=== PATIENT | male | born 1960 | race Two or more races ===

== ENCOUNTER 2016-10-10 14:05 | Inpatient (IN) | payer OTHER ==
[2016-10-10 14:18] VITALS: BMI 19.3
--- NOTE | 2016-10-10 17:06 | HP ---
CIWA Score - CIWA Score Nausea/Vomitin Muscle Tremors: 3 Anxiety: 3 Agitation: 3 Paroxysmal Sweats: 2 Orientation: 0-Oriented Tacttile Disturbances: 2-Mild Itch/Numbness/Burn Auditory Disturbances: 2-Mild Harshness/Frighten Visual Disturbances: 2-Mild Sensitivity Headache: 2-Mild CIWA-Ar Total Score: 22 Admission ROS BHS - HPI Chief Complaint: i need help to stop drinking alcohol Allergies/Adverse Reactions: Allergies Allergy/AdvReac Type Severity Reaction Status Date / Time No Known Allergies Allergy Verified 10/10/16 16:41 History of Present Illness: this 55 years old male with alcohol dependence,seeking detox,last treatment [facility] treatment 11/21/15 to 11/25/15 seen in [facility] last night ,had stitches,swelling of nose abrasion of right big toe stated has cat scan done at [facility] ,was told to be negative hypertension and hypercholesterolemia no significant period of sobriety Exam Limitations: No Limitations - Ebola screening Have you traveled outside of the country in the last 21 days: No Have you had contact with anyone from an Ebola affected area: No Have you been sick,other than usual withdrawal symptoms: No Do you have a fever: No - Review of Systems Constitutional: Loss of Appetite, Malaise, Night Sweats, Changes in sleep, Weakness EENT: reports: Other (swelling of nose laceration of chin) Respiratory: reports: No Symptoms reported Cardiac: reports: No Symptoms Reported GI: reports: Nausea, Poor Appetite, Vomiting, Abdominal cramping : reports: No Symptoms Reported Musculoskeletal: reports: Back Pain, Muscle Pain Integumentary: reports: Dryness Neuro: reports: Headache, Tremors Endocrine: reports: No Symptoms Reported Hematology: reports: No Symptoms Reported Psychiatric: reports: No Sypmtoms Reported, Judgement Intact, Mood/Affect Appropiate, Orientated x3 Patient History - Patient Medical History Hx Anemia: No Hx Asthma: No Hx Chronic Obstructive Pulmonary Disease (COPD): No Hx Cancer: No Hx Cardiac Disorders: No Hx Congestive Heart Failure: No Hx Hypertension: Yes (on med) Hx Hypercholesterolemia: Yes (no med) Hx Pacemaker: No HX Cerebrovascular Accident: No Hx Seizures: No Hx Dementia: No Hx Diabetes: No Hx Gastrointestinal Disorders: No Hx Liver Disease: No Hx Genitourinary Disorders: No Hx Sexually Transmitted Disorders: No Hx Renal Disease (ESRD): No Hx Thyroid Disease: No Hx Human Immunodeficiency Virus (HIV): No (never been tested) Hx Hepatitis C: No Hx Depression: No Hx Suicide Attempt: No Hx Bipolar Disorder: No Hx Schizophrenia: No Other Medical History: no suicidal,no homicidal - Patient Surgical History Past Surgical History: No Hx Neurologic Surgery: No Hx Cataract Extraction: No Hx Cardiac Surgery: No Hx Lung Surgery: No Hx Breast Surgery: No Hx Breast Biopsy: No Hx Abdominal Surgery: No Hx Appendectomy: No Hx Cholecystectomy: No Hx Genitourinary Surgery: No Hx Section: No Hx Orthopedic Surgery: No Anesthesia Reaction: No - PPD History Previous Implant?: Yes Documented Results: Negative w/o proof Date: 07/15/15 Results: 0MM PPD to be Administered?: Yes - Smoking Cessation Smoking history: Never smoked Have you smoked in the past 12 months: No Aproximately how many cigarettes per day: 0 Hx Chewing Tobacco Use: No - Substance & Tx. History Hx Alcohol Use: Yes Hx Substance Use: No Substance Use Type: Alcohol Hx Substance Use Treatment: Yes (last treatment 11/21/15 to ) - Substances Abused Alcohol Route: Oral Frequency: Daily Amount used: liquor- 1 pint, beet- 3 - 12oz Age of first use: 13 Date of Last Use: 10/10/16 Family Disease History - Family Disease History Family Disease History: Heart Disease: Mother (cardiac; had CVA,), CA: Sister (bone marrow; asthma), Respiratory: Sister Admission Physical Exam BHS - Vital Signs Vital Signs: Vital Signs - 24 hr 10/10/16 14:10 Temperature 98.5 F Pulse Rate 100 H Respiratory 18 Rate Blood Pressure 144/90 - Physical General Appearance: Yes: Moderate Distress, Alcohol on Breath, Intoxicated, Tremorous, Irritable, Sweating, Anxious HEENTM: Yes: Normal ENT Inspection, MATI, Pharynx Normal, Other (contuion of nose) Respiratory: Yes: Lungs Clear, Normal Breath Sounds, No Respiratory Distress Neck: Yes: Within Normal Limits Breast: Yes: Within Normal Limits Cardiology: Yes: Within Normal Limits, Regular Rhythm, Regular Rate, S1, S2 Abdominal: Yes: Within Normal Limits, Normal Bowel Sounds, Non Tender, Flat, Soft Genitourinary: Yes: Within Normal Limits Back: Yes: Muscle Spasm Musculoskeletal: Yes: full range of Motion, Back pain Extremities: Yes: Tremors 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 NML intact, Fully Oriented, Alert, Motor Strength 5/5 Integumentary: Yes: Dry Lymphatic: Yes: Within Normal Limits - Diagnostic (1) Alcohol dependence with uncomplicated withdrawal Current Visit: No Status: Acute (2) Alcohol induced sleep disorders Current Visit: No Status: Acute (3) Glaucoma Current Visit: No Status: Acute Qualifiers: Glaucoma type: unspecified type Laterality: bilateral (4) Arthritis Current Visit: No Status: Chronic (5) Laceration of chin Current Visit: Yes Status: Acute (6) Hypertension Current Visit: Yes Status: Acute (7) Hypercholesterolemia Current Visit: Yes Status: Acute (8) Contusion of nose Current Visit: Yes Status: Acute Cleared for Admission [facility] - Detox or Rehab [facility] Level of Care: Medically Managed Detox Regimen/Protocol: Librium [facility] Breath Alcohol Content Breath Alcohol Content: 0.039 Urine Drug Screen - Results Drug Screen Negative: Yes
[2016-10-10] MEDS ORDERED: chlordiazePOXIDE HCL 25 MG CAPSULE PO PRN (17:40)
[2016-10-10] MEDS ORDERED: chlordiazePOXIDE HCL 25 MG CAPSULE PO ONE (17:40)
[2016-10-10] MEDS ORDERED: hydrOXYzine PAMOATE 25 MG CAPSULE (FP) PO PRN (17:40)
[2016-10-10] MEDS ORDERED: P-EPHED 60MG/TRIPROLIDI 2.5MG TABLET PO PRN (17:40)
[2016-10-10] MEDS ORDERED: MAGNESIUM CITRATE 300 ML BOTTLE PO PRN (17:40)
[2016-10-10] MEDS ORDERED: diphenhydrAMINE HCL 50 MG CAPSULE PO PRN (17:40)
[2016-10-10] MEDS ORDERED: LOPERAMIDE HCL 2 MG CAPSULE PO PRN (17:40)
[2016-10-10] MEDS ORDERED: MAG HYDROX/AL HYDROX/SIMETH 30 ML UNIT-DOSE CUP PO PRN (17:40)
[2016-10-10] MEDS ORDERED: guaiFENesin/D-METHORPHAN HB 10 ML UNIT-DOSE CUPS PO PRN (17:40)
[2016-10-10] MEDS ORDERED: MENTHOL/PHENOL 1 EACH UD MM PRN (17:40)
[2016-10-10] MEDS ORDERED: MAGNESIUM HYDROX 2400MG/30ML ORAL SUSPENSION 30 ML CUP PO PRN (17:40)
[2016-10-10] MEDS: IBUPROFEN 400 MG TABLET (FP) PO PRN (18:18)
[2016-10-10] MEDS: chlordiazePOXIDE HCL 25 MG CAPSULE PO SCH (22:12)
[2016-10-10] MEDS: BACITRACIN 0.9 GM PACKET TP SCH (22:12)
[2016-10-10] MEDS: THIAMINE HCL 100 MG TABLET (FP) PO SCH (22:12)
[2016-10-10] MEDS: ACETAMINOPHEN 325 MG TABLET (FP) PO PRN (22:14)
[2016-10-10] MEDS: LATANOPROST 0.005% OPHTH SOLN 2.5ML BOTTLE OU SCH (22:15)
[2016-10-11] MEDS: IBUPROFEN 400 MG TABLET (FP) PO PRN ×2 (01:36→17:34)
[2016-10-11] MEDS: ACETAMINOPHEN 325 MG TABLET (FP) PO PRN ×2 (05:39→14:54)
[2016-10-11] MEDS: chlordiazePOXIDE HCL 25 MG CAPSULE PO SCH ×4 (05:39→22:27)
[2016-10-11 10:03] LABS: MCH 30.1 pg (25.7-33.7); MEAN CELL VOLUME 91.1 fl (80-96); MEAN PLT VOLUME 7.6 fl (7.5-11.1); PLATELET COUNT 333 K/MM3 (134-434); RDW 13.1 % (11.9-15.9); WHITE BLOOD COUNT 8.9 K/mm3 (4.0-10.0)
[2016-10-11] MEDS: PRENATAL VITAMINS W/ FOLIC ACID TABLET (FP) PO SCH (10:13)
[2016-10-11] MEDS: HYDROCHLOROTHIAZIDE 25 MG TABLET (FP) PO SCH (10:13)
[2016-10-11] MEDS: BACITRACIN 0.9 GM PACKET TP SCH ×2 (10:13→22:27)
[2016-10-11 10:22] LABS: ALBUMIN 3.4 g/dl (3.4-5.0); ALK PHOS 90 U/L (45-117); ANION GAP 9 (8-16); BILIRUBIN,TOTAL 1.1 mg/dL (0.2-1.0); CALCIUM 9.3 mg/dL (8.5-10.1); CO2 30 mmol/L (21-32); CREATININE 0.9 mg/dL (0.7-1.3); GLUCOSE,RANDOM 92 mg/dL (74-106); SGOT/AST 44 U/L (15-37); SGPT/ALT 73 U/L (12-78); TOT PROT 7.4 g/dl (6.4-8.2)
[2016-10-11] MEDS ORDERED: POTASSIUM CHLORIDE TABS 20 MEQ TABLET.ER (FP) PO ONE (17:53)
--- NOTE | 2016-10-11 17:55 | PN ---
S CIWA - CIWA Score Nausea/Vomitin Muscle Tremors: 4-Moderate,w/Arms Extend Anxiety: 4-Mod. Anxious/Guarded Agitation: 4-Moderately Restless Paroxysmal Sweats: 3 Orientation: 0-Oriented Tacttile Disturbances: 1-Very Mild Itch/Numbness Auditory Disturbances: 0-None Visual Disturbances: 0-None Headache: 1-Very Mild CIWA-Ar Total Score: 20 BHS Progress Note (SOAP) Subjective: Cramps in feet, interrupted sleep, sweating, anxious, tremor, chills Objective: 10/11/16 17:51 Last Vital Signs Temp Pulse Resp BP Pulse Ox 98.1 F 80 18 139/86 10/11/16 14:16 10/11/16 14:16 10/11/16 14:16 10/11/16 14:16 Laboratory Tests 10/11/16 10/11/16 10/11/16 07:50 07:50 07:50 WBC 8.9 D RBC 4.30 Hgb 12.9 Hct 39.2 MCV 91.1 MCH 30.1 MCHC 33.0 RDW 13.1 D Plt Count 333 D MPV 7.6 Sodium 134 L Potassium 3.1 L Chloride 95 L Carbon Dioxide 30 Anion Gap 9 BUN 9 Creatinine 0.9 Creat Clearance w eGFR > 60 Random Glucose 92 Calcium 9.3 Total Bilirubin 1.1 H AST 44 H ALT 73 D Alkaline Phosphatase 90 Total Protein 7.4 Albumin 3.4 RPR Titer Nonreactive Labs noted: K 3.1 Assessment: 10/11/16 17:52 Withdrawal symptoms Noted with hypokalemia Plan: Continue detox Hypokalemia: K Dur 40 meq PO x 1 then 20 meq PO bid starting tomorrow, send bmp on Wednesday
--- NOTE | 2016-10-11 22:07 | EKG ---
Test Reason : Blood Pressure : / mmHG Vent. Rate : 085 BPM Atrial Rate : 085 BPM P-R Int : 188 ms QRS Dur : 096 ms QT Int : 358 ms P-R-T Axes : 070 034 059 degrees QTc Int : 426 ms NORMAL SINUS RHYTHM NORMAL ECG NO PREVIOUS ECGS AVAILABLE Confirmed by WIN BENNETT MD ([id number]) on 10/11/2016 10:06:58 PM Referred By: Confirmed By:WIN BENNETT MD
[2016-10-11] MEDS: THIAMINE HCL 100 MG TABLET (FP) PO SCH (22:27)
[2016-10-11] MEDS: LATANOPROST 0.005% OPHTH SOLN 2.5ML BOTTLE OU SCH (22:28)
[2016-10-11 23:56] LABS: URINE APPEARANCE SLCLOUDY; URINE BILIRUBIN NEGATIVE (NEGATIVE); URINE BLOOD NEGATIVE (NEGATIVE); URINE COLOR AMBER; URINE GLUCOSE (UA) NEGATIVE (NEGATIVE); URINE KETONE TRACE (NEGATIVE); URINE LEUK ESTERASE NEGATIVE (NEGATIVE); URINE NITRITE NEGATIVE (NEGATIVE)
[2016-10-11 23:58] LABS: URINE PROTEIN 2+ (NEGATIVE)
[2016-10-12] LABS: URINE HYALINE CAST 3 /lpf; URINE MUCUS MANY; URINE RBC 19 /hpf (0-3); URINE WBC 3 /hpf (3-5)
[2016-10-12] MEDS: IBUPROFEN 400 MG TABLET (FP) PO PRN (03:14)
[2016-10-12] MEDS: chlordiazePOXIDE HCL 25 MG CAPSULE PO SCH ×3 (05:33→18:12)
--- NOTE | 2016-10-12 09:45 | PN ---
S CIWA - CIWA Score Nausea/Vomitin Muscle Tremors: 4-Moderate,w/Arms Extend Anxiety: 4-Mod. Anxious/Guarded Agitation: 4-Moderately Restless Paroxysmal Sweats: 3 Orientation: 0-Oriented Tacttile Disturbances: 1-Very Mild Itch/Numbness Auditory Disturbances: 0-None Visual Disturbances: 1-Very Mild Sensitivity Headache: 0-None Present CIWA-Ar Total Score: 20 S Progress Note (SOAP) Subjective: nause, swets, interrupted sleep, anxiety, tremors Objective: 10/12/16 09:44 Vital Signs - 8 hr 10/12/16 10/12/16 10/12/16 04:28 06:14 09:15 Temperature 98.9 F 96.7 F L Pulse Rate 76 75 Respiratory 18 18 18 Rate Blood Pressure 138/93 135/78 Laboratory Tests 10/11/16 10/11/16 10/11/16 07:50 07:50 07:50 WBC 8.9 D RBC 4.30 Hgb 12.9 Hct 39.2 MCV 91.1 MCH 30.1 MCHC 33.0 RDW 13.1 D Plt Count 333 D MPV 7.6 Sodium 134 L Potassium 3.1 L Chloride 95 L Carbon Dioxide 30 Anion Gap 9 BUN 9 Creatinine 0.9 Creat Clearance w eGFR > 60 Random Glucose 92 Calcium 9.3 Total Bilirubin 1.1 H AST 44 H ALT 73 D Alkaline Phosphatase 90 Total Protein 7.4 Albumin 3.4 Urine Color Urine Appearance Urine pH Urine Protein Urine Glucose (UA) Urine Ketones Urine Blood Urine Nitrite Urine Bilirubin Urine Urobilinogen Ur Leukocyte Esterase Urine RBC Urine WBC Ur Epithelial Cells Hyaline Casts Urine Mucus RPR Titer Nonreactive 10/11/16 22:40 WBC RBC Hgb Hct MCV MCH MCHC RDW Plt Count MPV Sodium Potassium Chloride Carbon Dioxide Anion Gap BUN Creatinine Creat Clearance w eGFR Random Glucose Calcium Total Bilirubin AST ALT Alkaline Phosphatase Total Protein Albumin Urine Color Nataliia Urine Appearance Slcloudy Urine pH 5.0 Urine Protein 2+ H Urine Glucose (UA) Negative Urine Ketones Trace H Urine Blood Negative Urine Nitrite Negative Urine Bilirubin Negative Urine Urobilinogen 2.0 Ur Leukocyte Esterase Negative Urine RBC 19 Urine WBC 3 Ur Epithelial Cells Rare Hyaline Casts 3 Urine Mucus Many RPR Titer abnormal u/a, labs noted Assessment: 10/12/16 09:44 withdrawal sx, low k, abnormal u/a Plan: cont detox, fluids, ensuire plus, for malnutirion hypoalbuminemia 2/2 substance use/liver disease?, supplement k, encourage ambulation
[2016-10-12] MEDS: HYDROCHLOROTHIAZIDE 25 MG TABLET (FP) PO SCH (10:21)
[2016-10-12] MEDS: PRENATAL VITAMINS W/ FOLIC ACID TABLET (FP) PO SCH (10:21)
[2016-10-12] MEDS: BACITRACIN 0.9 GM PACKET TP SCH ×2 (10:22→22:40)
[2016-10-12] MEDS: POTASSIUM CHLORIDE TABS 20 MEQ TABLET.ER (FP) PO SCH ×2 (10:22→22:41)
[2016-10-12] MEDS: NAPROXEN 500 MG TABLET (FP) PO SCH ×2 (10:23→22:40)
--- NOTE | 2016-10-12 10:29 | CONSULT ---
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 Substance Abuse History: Patient confirms this report in this interview. Smoking Cessation. Smoking history: Never smoked. Have you smoked in the past 12 months: No. Aproximately how many cigarettes per day: 0. Hx Chewing Tobacco Use: No. - Substance & Tx. History. Hx Alcohol Use: Yes. Hx Substance Use: No. Substance Use Type: Alcohol. Hx Substance Use Treatment: Yes (last treatment 11/21/15 to ). - Substances Abused. Alcohol. Route: Oral. Frequency: Daily. Amount used: liquor- 1 pint, beet- 3 - 12oz. Age of first use: 13. Date of Last Use: 10/10/16 Medical History: Hypertension,dyslipidemia,glaucoma and arthritis (self-report). Psychiatric History: Patient denies. Physical/Sexual Abuse/Trauma History: Patient denies. Additional Comment: Drug Screen is negative. Mental Status Exam - Mental Status Exam Alert and Oriented to: Time, Place, Person Cognitive Function: Good Patient Appearance: Well Groomed (abrasions noted in sub-mandibular area and nose) Mood: Hopeful, Euthymic Affect: Appropriate, Normal Range Patient Behavior: Appropriate, Cooperative Speech Pattern: Clear Voice Loudness: Normal Thought Process: Intact, Goal Oriented Thought Disorder: Not Present Hallucinations: Denies Suicidal Ideation: Denies Homicidal Ideation: Denies Insight/Judgement: Poor Sleep: Poorly, Difficulty falling asleep Appetite: Good Muscle strength/Tone: Normal Gait/Station: Normal Psychiatric Findings - Problem List ([place] 1, 2,3) (1) Alcohol dependence with uncomplicated withdrawal Current Visit: Yes Status: Acute (2) Contusion of nose Current Visit: Yes Status: Acute (3) Hypercholesterolemia Current Visit: Yes Status: Chronic (4) Hypertension Current Visit: Yes Status: Chronic (5) Laceration of chin Current Visit: Yes Status: Acute (6) Glaucoma Current Visit: Yes Status: Chronic Qualifiers: Glaucoma type: unspecified type Laterality: bilateral (7) Arthritis Current Visit: Yes Status: Chronic (8) Insomnia Current Visit: Yes Status: Acute - Initial Treatment Plan Initial Treatment Plan: Psychoeducation.Detoxification.Zolpidem 10 mg po hs.Already ordered.Patient made aware of potential for paraomnias.Consent ( verbal) expressed for adherence to this careplan.Observation.
[2016-10-12] MEDS: SELENIUM SULFIDE 2.5% LOTION 4 OZ. TP SCH (11:35)
[2016-10-12] MEDS: GABAPENTIN 100 MG CAPSULE (FP) PO SCH ×2 (13:26→22:40)
[2016-10-12] MEDS: CYCLOBENZAPRINE HCL 10 MG TABLET (FP) PO SCH ×2 (13:26→22:41)
[2016-10-12] MEDS: ACETAMINOPHEN 325 MG TABLET (FP) PO PRN (18:14)
[2016-10-12] MEDS: LATANOPROST 0.005% OPHTH SOLN 2.5ML BOTTLE OU SCH (22:40)
[2016-10-12] MEDS: chlordiazePOXIDE 5 MG CAPSULE PO SCH (22:40)
[2016-10-12] MEDS: ZOLPIDEM TARTRATE 10 MG TABLET (PARK CARE ONLY) PO PRN (22:40)
[2016-10-12] MEDS: THIAMINE HCL 100 MG TABLET (FP) PO SCH (22:40)
[2016-10-13] MEDS: chlordiazePOXIDE 5 MG CAPSULE PO SCH ×3 (05:38→17:55)
[2016-10-13] MEDS: GABAPENTIN 100 MG CAPSULE (FP) PO SCH ×3 (05:38→22:35)
[2016-10-13] MEDS: CYCLOBENZAPRINE HCL 10 MG TABLET (FP) PO SCH ×3 (05:38→22:35)
[2016-10-13] MEDS: ACETAMINOPHEN 325 MG TABLET (FP) PO PRN ×3 (05:39→17:57)
[2016-10-13] MEDS: HYDROCHLOROTHIAZIDE 25 MG TABLET (FP) PO SCH (10:34)
[2016-10-13] MEDS: POTASSIUM CHLORIDE TABS 20 MEQ TABLET.ER (FP) PO SCH ×2 (10:34→22:35)
[2016-10-13] MEDS: BACITRACIN 0.9 GM PACKET TP SCH ×2 (10:34→22:34)
[2016-10-13] MEDS: PRENATAL VITAMINS W/ FOLIC ACID TABLET (FP) PO SCH (10:34)
[2016-10-13] MEDS: SELENIUM SULFIDE 2.5% LOTION 4 OZ. TP SCH (10:35)
[2016-10-13] MEDS: NAPROXEN 500 MG TABLET (FP) PO SCH ×2 (10:35→22:35)
--- NOTE | 2016-10-13 11:09 | PN ---
BHS Progress Note (SOAP) Subjective: ANXIETY,SWEATS,TREMORS,FATIGUE. Objective: 10/13/16 11:07 Vital Signs Temperature 97.9 F 10/13/16 09:31 Pulse Rate 65 10/13/16 09:31 Respiratory Rate 18 10/13/16 09:31 Blood Pressure 127/85 10/13/16 09:31 O2 Sat by Pulse Oximetry (%) Laboratory Last Values WBC 8.9 K/mm3 (4.0-10.0) D 10/11/16 07:50 RBC 4.30 M/mm3 (4.00-5.60) 10/11/16 07:50 Hgb 12.9 GM/dL (11.7-16.9) 10/11/16 07:50 Hct 39.2 % (35.4-49) 10/11/16 07:50 MCV 91.1 fl (80-96) 10/11/16 07:50 MCH 30.1 pg (25.7-33.7) 10/11/16 07:50 MCHC 33.0 g/dl (32.0-35.9) 10/11/16 07:50 RDW 13.1 % (11.9-15.9) D 10/11/16 07:50 Plt Count 333 K/MM3 (134-434) D 10/11/16 07:50 MPV 7.6 fl (7.5-11.1) 10/11/16 07:50 Sodium 134 mmol/L (136-145) L 10/11/16 07:50 Potassium 3.1 mmol/L (3.5-5.1) L 10/11/16 07:50 Chloride 95 mmol/L (98-107) L 10/11/16 07:50 Carbon Dioxide 30 mmol/L (21-32) 10/11/16 07:50 Anion Gap 9 (8-16) 10/11/16 07:50 BUN 9 mg/dL (7-18) 10/11/16 07:50 Creatinine 0.9 mg/dL (0.7-1.3) 10/11/16 07:50 Creat Clearance w eGFR > 60 (>60) 10/11/16 07:50 Random Glucose 92 mg/dL (74-106) 10/11/16 07:50 Calcium 9.3 mg/dL (8.5-10.1) 10/11/16 07:50 Total Bilirubin 1.1 mg/dL (0.2-1.0) H 10/11/16 07:50 AST 44 U/L (15-37) H 10/11/16 07:50 ALT 73 U/L (12-78) D 10/11/16 07:50 Alkaline Phosphatase 90 U/L (45-117) 10/11/16 07:50 Total Protein 7.4 g/dl (6.4-8.2) 10/11/16 07:50 Albumin 3.4 g/dl (3.4-5.0) 10/11/16 07:50 Urine Color Nataliia 10/11/16 22:40 Urine Appearance Slcloudy 10/11/16 22:40 Urine pH 5.0 (5.0-8.0) 10/11/16 22:40 Ur Specific [place] 1.025 (1.005-1.025) 10/11/16 22:40 Urine Protein 2+ (NEGATIVE) H 10/11/16 22:40 Urine Glucose (UA) Negative (NEGATIVE) 10/11/16 22:40 Urine Ketones Trace (NEGATIVE) H 10/11/16 22:40 Urine Blood Negative (NEGATIVE) 10/11/16 22:40 Urine Nitrite Negative (NEGATIVE) 10/11/16 22:40 Urine Bilirubin Negative (NEGATIVE) 10/11/16 22:40 Urine Urobilinogen 2.0 mg/dL (0.2-1.0) 10/11/16 22:40 Ur Leukocyte Esterase Negative (NEGATIVE) 10/11/16 22:40 Urine RBC 19 /hpf (0-3) 10/11/16 22:40 Urine WBC 3 /hpf (3-5) 10/11/16 22:40 Ur Epithelial Cells Rare /hpf (FEW) 10/11/16 22:40 Hyaline Casts 3 /lpf 10/11/16 22:40 Urine Mucus Many 10/11/16 22:40 RPR Titer Nonreactive (NONREACTIVE) 10/11/16 07:50 LABS/UA NOTED K+ =3.1 Assessment: 10/13/16 11:08 WITHDRAWAL SX HYPOKALEMIA MICROSCOPIC HEMATURIA Plan: CONTINUE DETOX REPEAT UA KDUR 20 MEQ PO BID DIRECTED INCREASE PO FLUIDS
[2016-10-13 22:09] LABS: URINE APPEARANCE CLEAR; URINE BILIRUBIN NEGATIVE (NEGATIVE); URINE BLOOD NEGATIVE (NEGATIVE); URINE COLOR LTYELLOW; URINE GLUCOSE (UA) NEGATIVE (NEGATIVE); URINE KETONE NEGATIVE (NEGATIVE); URINE LEUK ESTERASE NEGATIVE (NEGATIVE); URINE NITRITE NEGATIVE (NEGATIVE); URINE PROTEIN NEGATIVE (NEGATIVE); URINE UROBILINOGEN NEGATIVE mg/dL (0.2-1.0)
[2016-10-13] MEDS: LATANOPROST 0.005% OPHTH SOLN 2.5ML BOTTLE OU SCH (22:33)
[2016-10-13] MEDS: THIAMINE HCL 100 MG TABLET (FP) PO SCH (22:33)
[2016-10-13] MEDS: chlordiazePOXIDE HCL 10 MG CAPSULE PO SCH (22:35)
[2016-10-13] MEDS: ZOLPIDEM TARTRATE 10 MG TABLET (PARK CARE ONLY) PO PRN (22:35)
[2016-10-14] MEDS: ACETAMINOPHEN 325 MG TABLET (FP) PO PRN (05:24)
[2016-10-14] MEDS: GABAPENTIN 100 MG CAPSULE (FP) PO SCH (06:09)
[2016-10-14] MEDS: chlordiazePOXIDE HCL 10 MG CAPSULE PO SCH (06:09)
[2016-10-14] MEDS: CYCLOBENZAPRINE HCL 10 MG TABLET (FP) PO SCH (06:09)
--- NOTE | 2016-10-14 08:39 | DS ---
[facility] Detox Discharge Summary Admission Date: 10/10/16 Discharge Date: 10/14/16 - History Present History: Alcohol Dependence Additional Comments: DETOX COMPLETED. ALERT O X 3. NAD. PT INSRUCTED TO FOLLOW UP WITH [facility]ULLER IN [facility] FOR MEDICAL MANAGEMENT OF COMORBID CONDITIONS. PT STATES HE HAS OWN MEDS AT HOME. Pertinent Past History: HYPERTENSION HYPERCHOLESTEROLEMIA GLAUCOMA S/P CONTUSION OF NOSE S/P LACERATION CHIN - Physical Exam Results Vital Signs: Vital Signs Temperature 98.7 F 10/14/16 06:57 Pulse Rate 84 10/14/16 06:57 Respiratory Rate 18 10/14/16 06:57 Blood Pressure 129/81 10/14/16 06:57 O2 Sat by Pulse Oximetry (%) Pertinent Admission Physical Exam Findings: WITHDRAWAL SX Laboratory Last Values WBC 8.9 K/mm3 (4.0-10.0) D 10/11/16 07:50 RBC 4.30 M/mm3 (4.00-5.60) 10/11/16 07:50 Hgb 12.9 GM/dL (11.7-16.9) 10/11/16 07:50 Hct 39.2 % (35.4-49) 10/11/16 07:50 MCV 91.1 fl (80-96) 10/11/16 07:50 MCH 30.1 pg (25.7-33.7) 10/11/16 07:50 MCHC 33.0 g/dl (32.0-35.9) 10/11/16 07:50 RDW 13.1 % (11.9-15.9) D 10/11/16 07:50 Plt Count 333 K/MM3 (134-434) D 10/11/16 07:50 MPV 7.6 fl (7.5-11.1) 10/11/16 07:50 Sodium 140 mmol/L (136-145) 10/14/16 07:00 Potassium 4.6 mmol/L (3.5-5.1) D 10/14/16 07:00 Chloride 102 mmol/L (98-107) 10/14/16 07:00 Carbon Dioxide 31 mmol/L (21-32) 10/14/16 07:00 Anion Gap 7 (8-16) L 10/14/16 07:00 BUN 12 mg/dL (7-18) D 10/14/16 07:00 Creatinine 0.7 mg/dL (0.7-1.3) D 10/14/16 07:00 Creat Clearance w eGFR > 60 (>60) 10/11/16 07:50 Random Glucose 93 mg/dL (74-106) 10/14/16 07:00 Calcium 10.3 mg/dL (8.5-10.1) H 10/14/16 07:00 Total Bilirubin 1.1 mg/dL (0.2-1.0) H 10/11/16 07:50 AST 44 U/L (15-37) H 10/11/16 07:50 ALT 73 U/L (12-78) D 10/11/16 07:50 Alkaline Phosphatase 90 U/L (45-117) 10/11/16 07:50 Total Protein 7.4 g/dl (6.4-8.2) 10/11/16 07:50 Albumin 3.4 g/dl (3.4-5.0) 10/11/16 07:50 Urine Color Ltyellow 10/13/16 21:30 Urine Appearance Clear 10/13/16 21:30 Urine pH 7.0 (5.0-8.0) D 10/13/16 21:30 Ur Specific [place] 1.020 (1.005-1.025) 10/13/16 21:30 Urine Protein Negative (NEGATIVE) 10/13/16 21:30 Urine Glucose (UA) Negative (NEGATIVE) 10/13/16 21:30 Urine Ketones Negative (NEGATIVE) 10/13/16 21:30 Urine Blood Negative (NEGATIVE) 10/13/16 21:30 Urine Nitrite Negative (NEGATIVE) 10/13/16 21:30 Urine Bilirubin Negative (NEGATIVE) 10/13/16 21:30 Urine Urobilinogen Negative mg/dL (0.2-1.0) 10/13/16 21:30 Ur Leukocyte Esterase Negative (NEGATIVE) 10/13/16 21:30 Urine RBC 19 /hpf (0-3) 10/11/16 22:40 Urine WBC 3 /hpf (3-5) 10/11/16 22:40 Ur Epithelial Cells Rare /hpf (FEW) 10/11/16 22:40 Hyaline Casts 3 /lpf 10/11/16 22:40 Urine Mucus Many 10/11/16 22:40 RPR Titer Nonreactive (NONREACTIVE) 10/11/16 07:50 - Treatment Hospital Course: Detox Protocol Followed, Detoxed Safely, Responded well, Discharged Condition Good - Medication Discharge Medications: Ambulatory Orders Latanoprost 0.005% Eye Drops [Xalatan 0.005% Eye Drops -] 1 drop OU HS #1 drops 01/02/16 Hydrochlorothiazide [Hctz -] 25 mg PO DAILY 10/10/16 - Diagnosis (1) Alcohol dependence with uncomplicated withdrawal Current Visit: Yes Status: Acute (2) Arthritis Current Visit: Yes Status: Chronic (3) Glaucoma Current Visit: Yes Status: Chronic Qualifiers: Glaucoma type: unspecified type Laterality: bilateral (4) Hypercholesterolemia Current Visit: Yes Status: Chronic (5) Hypertension Current Visit: Yes Status: Chronic Qualifiers: Hypertension type: essential hypertension Qualified Code(s): I10 - Essential (primary) hypertension (6) Contusion of nose Current Visit: Yes Status: Acute (7) Laceration of chin Current Visit: Yes Status: Acute (8) Hypokalemia Current Visit: Yes Status: Acute - AMA Did Patient Leave Against Medical Advice: No
[2016-10-14 10:16] VITALS: BP 137/84; PULSE 91; TEMP 98.2
[2016-10-14 10:30] LABS: ANION GAP 7 (8-16); CALCIUM 10.3 mg/dL (8.5-10.1); CO2 31 mmol/L (21-32); CREATININE 0.7 mg/dL (0.7-1.3); GLUCOSE,RANDOM 93 mg/dL (74-106)
[2016-10-14] MEDS: HYDROCHLOROTHIAZIDE 25 MG TABLET (FP) PO SCH (10:45)
[2016-10-14] MEDS: BACITRACIN 0.9 GM PACKET TP SCH (10:45)
[2016-10-14] MEDS: NAPROXEN 500 MG TABLET (FP) PO SCH (10:45)
[2016-10-14] MEDS: PRENATAL VITAMINS W/ FOLIC ACID TABLET (FP) PO SCH (10:45)
[2016-10-14] MEDS: POTASSIUM CHLORIDE TABS 20 MEQ TABLET.ER (FP) PO SCH (10:45)
[2016-10-14] MEDS: SELENIUM SULFIDE 2.5% LOTION 4 OZ. TP SCH (10:47)
== END 2016-10-14 10:53 | disposition home or self-care (01) | DRG 775 ==
LOC: YASAS 14:05 → Y3N 17:05
PROVIDERS: ADMIT Internal Medicine Addiction Medicine; ATTEND Internal Medicine Addiction Medicine
PROC: HZ2ZZZZ Detoxification Services for Substance Abuse Treatment (ICD-10-PCS; principal; 2016-10-10)
DX: F10.230 Alcohol dependence with withdrawal, uncomplicated (principal); I10 Essential (primary) hypertension; E78.00 Pure hypercholesterolemia, unspecified; E87.6 Hypokalemia; R31.29 Other microscopic hematuria; G47.00 Insomnia, unspecified; R82.90 Unspecified abnormal findings in urine; H40.9 Unspecified glaucoma; M19.90 Unspecified osteoarthritis, unspecified site
CPT/HCPCS: 36415; 80048; 80053; 81003; 81015; 85027; 86593; 93005; 93010

== ENCOUNTER 2017-01-12 09:32 | Inpatient (IN) | payer OTHER ==
[2017-01-12 10:45] VITALS: BMI 21.1
--- NOTE | 2017-01-12 12:20 | HP ---
CIWA Score - CIWA Score Nausea/Vomitin-No Nausea/No Vomiting Muscle Tremors: 4-Moderate,w/Arms Extend Anxiety: 5 Agitation: 4-Moderately Restless Paroxysmal Sweats: 1-Minimal Palms Moist Orientation: 0-Oriented Tacttile Disturbances: 3-Moderate Itch/Numb/Burn Auditory Disturbances: 0-None Visual Disturbances: 0-None Headache: 0-None Present CIWA-Ar Total Score: 17 Admission ROS BHS - HPI Chief Complaint: WITHDRAWAL SX FROM ALCOHOL Allergies/Adverse Reactions: Allergies Allergy/AdvReac Type Severity Reaction Status Date / Time amlodipine besylate Allergy Severe Swelling Verified 01/12/17 11:21 [From [facility]] History of Present Illness: 56 Y/O MALE WITH A HX ALCOHOL DEPENDENCE SEEKING DETOX TX. PT IS AT [facility] IOP. Exam Limitations: No Limitations, Intoxication - Ebola screening Have you traveled outside of the country in the last 21 days: No Have you had contact with anyone from an Ebola affected area: No Have you been sick,other than usual withdrawal symptoms: No Do you have a fever: No - Review of Systems Constitutional: Changes in sleep (ON SLEEPING MED) EENT: reports: Blurred Vision (HX GLAUCOMA, BOTH EYES), Tearing, Nose Congestion (HX DEVIATED SEPTUM), Dental Problems (MISSING TEETH/POOR REPAIR STATE) Respiratory: reports: No Symptoms reported Cardiac: reports: No Symptoms Reported GI: reports: Constipated, Diarrhea, Nausea, Vomiting : reports: No Symptoms Reported Musculoskeletal: reports: Neck Pain (HX ARTHRITIS) Integumentary: reports: Other (SCAR FROM RASH IN THE PAST) Neuro: reports: Tremors Endocrine: reports: No Symptoms Reported Hematology: reports: No Symptoms Reported Psychiatric: reports: Orientated x3, Anxious Other Systems: Reviewed and Negative Patient History - Patient Medical History Hx Anemia: No Hx Asthma: No Hx Chronic Obstructive Pulmonary Disease (COPD): No Hx Cancer: No Hx Cardiac Disorders: No Hx Congestive Heart Failure: No Hx Hypertension: Yes (on meds.) Hx Hypercholesterolemia: Yes (no med) Hx Pacemaker: No HX Cerebrovascular Accident: No Hx Seizures: No Hx Dementia: No Hx Diabetes: No Hx Gastrointestinal Disorders: No Hx Liver Disease: Yes (FATTY LIVER HX) Hx Genitourinary Disorders: No Hx Sexually Transmitted Disorders: No Hx Renal Disease (ESRD): No Hx Thyroid Disease: No Hx Human Immunodeficiency Virus (HIV): No (never been tested) Hx Hepatitis C: No Hx Depression: Yes (INSOMNIA-SEROQUEL ) Hx Suicide Attempt: No (DENIES) Hx Bipolar Disorder: No Hx Schizophrenia: No - Patient Surgical History Past Surgical History: No Hx Neurologic Surgery: No Hx Cataract Extraction: No Hx Cardiac Surgery: No Hx Lung Surgery: No Hx Breast Surgery: No Hx Breast Biopsy: No Hx Abdominal Surgery: No Hx Appendectomy: No Hx Cholecystectomy: No Hx Genitourinary Surgery: No Hx Orthopedic Surgery: No Anesthesia Reaction: No - PPD History Previous Implant?: Yes Documented Results: Negative w/proof Implanted On Prior [facility] Admission?: Yes Date: 07/15/15 Results: 0 mm PPD to be Administered?: Yes - Reproductive History Patient is a Female of Child Bearing Age (11 -55 yrs old): No (MALE) - Smoking Cessation Smoking history: Former smoker (SAYS LAST TIME TOOK A PUFF OF CIGAR WAS 3 YRS AGO.) Have you smoked in the past 12 months: No Aproximately how many cigarettes per day: 0 If you are a former smoker, when did you quit?: 3 YRS AGO SMOKED CIGAR. Cigars Per Day: 1 Hx Chewing Tobacco Use: No Initiated information on smoking cessation: No - Substances Abused Alcohol Route: Oral Frequency: Daily Amount used: 1-2 GLASS OF WINE 24 OZ BEERS Age of first use: 17 Date of Last Use: 01/12/17 Family Disease History - Family Disease History Family Disease History: Heart Disease: Mother (cardiac; had CVA,), CA: Sister (bone marrow; asthma), Respiratory: Sister Admission Physical Exam S - Vital Signs Vital Signs: Vital Signs - 24 hr 01/12/17 10:43 Temperature 96.2 F L Pulse Rate 103 H Respiratory 20 Rate Blood Pressure 114/75 - Physical General Appearance: Yes: Moderate Distress, Alcohol on Breath, Intoxicated, Irritable, Anxious HEENTM: Yes: EOMI, Normocephalic, MATI, Pharynx Normal, Nasal Congestion Respiratory: Yes: Chest Non-Tender, Lungs Clear, Normal Breath Sounds, No Respiratory Distress Neck: Yes: No masses,lesions,Nodules, Supple, Trachea in good position Breast: Yes: Breast Exam Deferred Cardiology: Yes: Regular Rhythm, Regular Rate, S1, S2 Abdominal: Yes: Normal Bowel Sounds, Non Tender Genitourinary: Yes: Other Musculoskeletal: Yes: full range of Motion, Gait Steady Extremities: Yes: Normal Range of Motion, Non-Tender 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, Fully Oriented, Alert, Motor Strength 5/5 Integumentary: Yes: Dry, Warm Lymphatic: Yes: Within Normal Limits - Diagnostic (1) Alcohol dependence with uncomplicated withdrawal Current Visit: Yes Status: Acute (2) Arthritis Current Visit: Yes Status: Chronic (3) Glaucoma Current Visit: Yes Status: Chronic Qualifiers: Glaucoma type: unspecified type Laterality: bilateral (4) Hypercholesterolemia Current Visit: Yes Status: Resolved (5) Hypertension Current Visit: Yes Status: Chronic Qualifiers: Hypertension type: essential hypertension Qualified Code(s): I10 - Essential (primary) hypertension Cleared for Admission [facility] - Detox or Rehab [facility] Level of Care: Medically Managed Detox Regimen/Protocol: Librium [facility] Breath Alcohol Content Breath Alcohol Content: 0.140 Urine Drug Screen - Results Drug Screen Negative: Yes
[2017-01-12] MEDS ORDERED: guaiFENesin/D-METHORPHAN HB 10 ML UNIT-DOSE CUPS PO PRN (12:32)
[2017-01-12] MEDS ORDERED: chlordiazePOXIDE HCL 25 MG CAPSULE PO PRN (12:32)
[2017-01-12] MEDS ORDERED: LOPERAMIDE HCL 2 MG CAPSULE PO PRN (12:32)
[2017-01-12] MEDS ORDERED: MAGNESIUM HYDROX 2400MG/30ML ORAL SUSPENSION 30 ML CUP PO PRN (12:32)
[2017-01-12] MEDS ORDERED: MENTHOL/PHENOL 1 EACH UD MM PRN (12:32)
[2017-01-12] MEDS ORDERED: MAGNESIUM CITRATE 300 ML BOTTLE PO PRN (12:32)
[2017-01-12] MEDS ORDERED: MAG HYDROX/AL HYDROX/SIMETH 30 ML UNIT-DOSE CUP PO PRN (12:32)
[2017-01-12] MEDS ORDERED: P-EPHED 60MG/TRIPROLIDI 2.5MG TABLET PO PRN (12:32)
[2017-01-12] MEDS ORDERED: IBUPROFEN 400 MG TABLET (FP) PO PRN (12:32)
[2017-01-12] MEDS ORDERED: ACETAMINOPHEN 325 MG TABLET (FP) PO PRN (12:53)
[2017-01-12] MEDS ORDERED: chlordiazePOXIDE HCL 25 MG CAPSULE PO ONE (12:53)
[2017-01-12 15:14] LABS: ALBUMIN 3.8 g/dl (3.4-5.0); ANION GAP 10 (8-16); CALCIUM 8.8 mg/dL (8.5-10.1); CO2 25 mmol/L (21-32); GLUCOSE,RANDOM 108 mg/dL (74-106); SGPT/ALT 83 U/L (12-78)
[2017-01-12 15:18] LABS: ALK PHOS 111 U/L (45-117); BILIRUBIN,TOTAL 0.6 mg/dL (0.2-1.0); CREATININE 0.9 mg/dL (0.7-1.3); SGOT/AST 96 U/L (15-37); TOT PROT 8.4 g/dl (6.4-8.2)
[2017-01-12 16:08] LABS: MCHC 33.6 g/dl (32.0-35.9); MEAN CELL VOLUME 89.3 fl (80-96); PLATELET COUNT 253 K/MM3 (134-434); RDW 12.7 % (11.9-15.9)
[2017-01-12] MEDS: chlordiazePOXIDE HCL 25 MG CAPSULE PO SCH ×2 (16:55→22:07)
[2017-01-12] MEDS: LATANOPROST 0.005% OPHTH SOLN 2.5ML BOTTLE OU SCH (22:07)
[2017-01-12] MEDS: THIAMINE HCL 100 MG TABLET (FP) PO SCH (22:08)
[2017-01-13 00:10] LABS: URINE APPEARANCE CLEAR; URINE BILIRUBIN NEGATIVE (NEGATIVE); URINE BLOOD NEGATIVE (NEGATIVE); URINE COLOR LT. YELLOW; URINE GLUCOSE (UA) NEGATIVE (NEGATIVE); URINE KETONE NEGATIVE (NEGATIVE); URINE NITRITE NEGATIVE (NEGATIVE); URINE PROTEIN NEGATIVE (NEGATIVE); URINE UROBILINOGEN 0.2 mg/dL (0.2-1.0)
[2017-01-13] MEDS: chlordiazePOXIDE HCL 25 MG CAPSULE PO SCH ×4 (05:14→22:02)
[2017-01-13 09:28] LABS: URINE LEUK ESTERASE Negative (NEGATIVE)
[2017-01-13] MEDS: PRENATAL VITAMINS W/ FOLIC ACID TABLET (FP) PO SCH (10:13)
[2017-01-13] MEDS: HYDROCHLOROTHIAZIDE 25 MG TABLET (FP) PO SCH (10:13)
--- NOTE | 2017-01-13 11:31 | PN ---
[facility] CIWA - CIWA Score Nausea/Vomitin-No Nausea/No Vomiting Muscle Tremors: 4-Moderate,w/Arms Extend Anxiety: 4-Mod. Anxious/Guarded Agitation: 4-Moderately Restless Paroxysmal Sweats: 1-Minimal Palms Moist Orientation: 0-Oriented Tacttile Disturbances: 3-Moderate Itch/Numb/Burn Auditory Disturbances: 0-None Visual Disturbances: 0-None Headache: 0-None Present CIWA-Ar Total Score: 16 [facility] Progress Note (SOAP) Subjective: ANXIETY,SWEATS,SLIGHT TREMORS. Objective: 01/13/17 11:31 Vital Signs Temperature 96.3 F L 01/13/17 09:07 Pulse Rate 79 01/13/17 09:07 Respiratory Rate 18 01/13/17 09:07 Blood Pressure 155/100 01/13/17 09:07 O2 Sat by Pulse Oximetry (%) Laboratory Last Values WBC 8.0 K/mm3 (4.0-10.0) 01/12/17 12:56 RBC 4.51 M/mm3 (4.00-5.60) 01/12/17 12:56 Hgb 13.5 GM/dL (11.7-16.9) 01/12/17 12:56 Hct 40.3 % (35.4-49) 01/12/17 12:56 MCV 89.3 fl (80-96) 01/12/17 12:56 MCH 30.0 pg (25.7-33.7) 01/12/17 12:56 MCHC 33.6 g/dl (32.0-35.9) 01/12/17 12:56 RDW 12.7 % (11.9-15.9) 01/12/17 12:56 Plt Count 253 K/MM3 (134-434) D 01/12/17 12:56 MPV 8.0 fl (7.5-11.1) 01/12/17 12:56 Sodium 135 mmol/L (136-145) L 01/12/17 12:56 Potassium 3.6 mmol/L (3.5-5.1) D 01/12/17 12:56 Chloride 100 mmol/L (98-107) 01/12/17 12:56 Carbon Dioxide 25 mmol/L (21-32) 01/12/17 12:56 Anion Gap 10 (8-16) 01/12/17 12:56 BUN 8 mg/dL (7-18) D 01/12/17 12:56 Creatinine 0.9 mg/dL (0.7-1.3) D 01/12/17 12:56 Creat Clearance w eGFR > 60 (>60) 01/12/17 12:56 Random Glucose 108 mg/dL (74-106) H 01/12/17 12:56 Calcium 8.8 mg/dL (8.5-10.1) 01/12/17 12:56 Total Bilirubin 0.6 mg/dL (0.2-1.0) D 01/12/17 12:56 AST 96 U/L (15-37) H D 01/12/17 12:56 ALT 83 U/L (12-78) H 01/12/17 12:56 Alkaline Phosphatase 111 U/L (45-117) D 01/12/17 12:56 Total Protein 8.4 g/dl (6.4-8.2) H 01/12/17 12:56 Albumin 3.8 g/dl (3.4-5.0) 01/12/17 12:56 Urine Color Lt. yellow 01/12/17 19:00 Urine Appearance Clear 01/12/17 19:00 Urine pH 7.0 (5.0-8.0) 01/12/17 19:00 Ur Specific [place] <= 1.005 (1.001-1.035) 01/12/17 19:00 Urine Protein Negative (NEGATIVE) 01/12/17 19:00 Urine Glucose (UA) Negative (NEGATIVE) 01/12/17 19:00 Urine Ketones Negative (NEGATIVE) 01/12/17 19:00 Urine Blood Negative (NEGATIVE) 01/12/17 19:00 Urine Nitrite Negative (NEGATIVE) 01/12/17 19:00 Urine Bilirubin Negative (NEGATIVE) 01/12/17 19:00 Urine Urobilinogen 0.2 mg/dL (0.2-1.0) 01/12/17 19:00 Ur Leukocyte Esterase Negative (NEGATIVE) 01/12/17 19:00 RPR Titer Nonreactive (NONREACTIVE) 01/12/17 12:56 Assessment: 01/13/17 11:31 WITHDRAWAL SX Plan: CONTINUE DETOX
--- NOTE | 2017-01-13 12:48 | EKG ---
Test Reason : Blood Pressure : / mmHG Vent. Rate : 099 BPM Atrial Rate : 099 BPM P-R Int : 182 ms QRS Dur : 104 ms QT Int : 354 ms P-R-T Axes : 061 -06 021 degrees QTc Int : 454 ms NORMAL SINUS RHYTHM NORMAL ECG WHEN COMPARED WITH ECG OF 10-OCT-2016 17:20, T WAVE AMPLITUDE HAS DECREASED IN ANTERIOR LEADS Confirmed by HI MEJIA MD ([id number]) on 01/13/2017 12:48:03 PM Referred By: Confirmed By:HI MEJIA MD
--- NOTE | 2017-01-13 13:56 | CONSULT ---
[facility] Psychiatric Consult - Data Date of interview: 01/13/17 Admission source: [facility] Identifying data: Another admission to [facility] for this 56 y/o AA male seeking detox treatment on for alcohol dependence.Patient is ,a father of one,domiciled and self-employed. Substance Abuse History: Confirmed by patient.See [facility] report for details : Smoking history: Former smoker (SAYS LAST TIME TOOK A PUFF OF CIGAR WAS 3 YRS AGO.). Have you smoked in the past 12 months: No. Aproximately how many cigarettes per day: 0. If you are a former smoker, when did you quit?: 3 YRS AGO SMOKED CIGAR. Cigars Per Day: 1. Hx Chewing Tobacco Use: No. Initiated information on smoking cessation: No. - Substances Abused. Alcohol. Route : Oral. Frequency: Daily. Amount used: 1-2 GLASS OF WINE 24 OZ BEERS. Age of first use: 17. Date of Last Use: 01/12/17 Medical History: Hypertension,dyslipidemia,glaucoma and arthritis (self-report). Psychiatric History: Patient denies. Physical/Sexual Abuse/Trauma History: Patient denies. Additional Comment: Drug Screen is negative. Mental Status Exam - Mental Status Exam Alert and Oriented to: Time, Person Cognitive Function: Good Patient Appearance: Well Groomed Mood: Euthymic Affect: Normal Range Speech Pattern: Clear Voice Loudness: Normal Thought Process: Intact, Goal Oriented Thought Disorder: Not Present Hallucinations: Denies Suicidal Ideation: Denies Homicidal Ideation: Denies Insight/Judgement: Poor Sleep: Poorly, Difficulty falling asleep Appetite: Good Muscle strength/Tone: Normal Gait/Station: Normal Psychiatric Findings - Problem List ([place] 1, 2,3) (1) Alcohol dependence with uncomplicated withdrawal Current Visit: Yes Status: Acute (2) Insomnia Current Visit: Yes Status: Acute - Initial Treatment Plan Initial Treatment Plan: Psychoeducation.Sleep hygiene recommended.Detoxification in progress.Seroquel 100 mg po hs.Side effects/ benefits discussed with patient.Observation.
--- NOTE | 2017-01-13 13:57 | CONSULT ---
[facility] Psychiatric Consult - Data Substance Abuse History: Drug Screen Negative: Yes
[2017-01-13] MEDS: THIAMINE HCL 100 MG TABLET (FP) PO SCH (22:02)
[2017-01-13] MEDS: QUEtiapine FUMARATE 100 MG TABLET (FP) PO SCH (22:02)
[2017-01-13] MEDS: LATANOPROST 0.005% OPHTH SOLN 2.5ML BOTTLE OU SCH (22:03)
[2017-01-14] MEDS: chlordiazePOXIDE HCL 25 MG CAPSULE PO SCH ×2 (05:14→10:35)
[2017-01-14] MEDS: PRENATAL VITAMINS W/ FOLIC ACID TABLET (FP) PO SCH (10:35)
[2017-01-14] MEDS: HYDROCHLOROTHIAZIDE 25 MG TABLET (FP) PO SCH (10:35)
[2017-01-14] MEDS ORDERED: PATIENT'S OWN MEDICATION (NON-FORMULARY) (Selenium Sulfide 1 APPLIC) TP SCH (11:00)
--- NOTE | 2017-01-14 11:12 | PN ---
[facility] CIWA - CIWA Score Nausea/Vomitin-No Nausea/No Vomiting Muscle Tremors: 4-Moderate,w/Arms Extend Anxiety: 4-Mod. Anxious/Guarded Agitation: 4-Moderately Restless Paroxysmal Sweats: 1-Minimal Palms Moist Orientation: 0-Oriented Tacttile Disturbances: 3-Moderate Itch/Numb/Burn Auditory Disturbances: 0-None Visual Disturbances: 0-None Headache: 0-None Present CIWA-Ar Total Score: 16 S Progress Note (SOAP) Subjective: ANXIETY,SWEATS,SLIGHT TREMORS,USES SELENIUM SULFIDE SHAMPOO FOR SCALP PROBLEM. Objective: 01/14/17 11:16 Vital Signs Temperature 97.8 F 01/14/17 09:09 Pulse Rate 90 01/14/17 09:09 Respiratory Rate 20 01/14/17 09:09 Blood Pressure 141/88 01/14/17 09:09 O2 Sat by Pulse Oximetry (%) Laboratory Last Values WBC 8.0 K/mm3 (4.0-10.0) 01/12/17 12:56 RBC 4.51 M/mm3 (4.00-5.60) 01/12/17 12:56 Hgb 13.5 GM/dL (11.7-16.9) 01/12/17 12:56 Hct 40.3 % (35.4-49) 01/12/17 12:56 MCV 89.3 fl (80-96) 01/12/17 12:56 MCH 30.0 pg (25.7-33.7) 01/12/17 12:56 MCHC 33.6 g/dl (32.0-35.9) 01/12/17 12:56 RDW 12.7 % (11.9-15.9) 01/12/17 12:56 Plt Count 253 K/MM3 (134-434) D 01/12/17 12:56 MPV 8.0 fl (7.5-11.1) 01/12/17 12:56 Sodium 135 mmol/L (136-145) L 01/12/17 12:56 Potassium 3.6 mmol/L (3.5-5.1) D 01/12/17 12:56 Chloride 100 mmol/L (98-107) 01/12/17 12:56 Carbon Dioxide 25 mmol/L (21-32) 01/12/17 12:56 Anion Gap 10 (8-16) 01/12/17 12:56 BUN 8 mg/dL (7-18) D 01/12/17 12:56 Creatinine 0.9 mg/dL (0.7-1.3) D 01/12/17 12:56 Creat Clearance w eGFR > 60 (>60) 01/12/17 12:56 Random Glucose 108 mg/dL (74-106) H 01/12/17 12:56 Calcium 8.8 mg/dL (8.5-10.1) 01/12/17 12:56 Total Bilirubin 0.6 mg/dL (0.2-1.0) D 01/12/17 12:56 AST 96 U/L (15-37) H D 01/12/17 12:56 ALT 83 U/L (12-78) H 01/12/17 12:56 Alkaline Phosphatase 111 U/L (45-117) D 01/12/17 12:56 Total Protein 8.4 g/dl (6.4-8.2) H 01/12/17 12:56 Albumin 3.8 g/dl (3.4-5.0) 01/12/17 12:56 Urine Color Lt. yellow 01/12/17 19:00 Urine Appearance Clear 01/12/17 19:00 Urine pH 7.0 (5.0-8.0) 01/12/17 19:00 Ur Specific [place] <= 1.005 (1.001-1.035) 01/12/17 19:00 Urine Protein Negative (NEGATIVE) 01/12/17 19:00 Urine Glucose (UA) Negative (NEGATIVE) 01/12/17 19:00 Urine Ketones Negative (NEGATIVE) 01/12/17 19:00 Urine Blood Negative (NEGATIVE) 01/12/17 19:00 Urine Nitrite Negative (NEGATIVE) 01/12/17 19:00 Urine Bilirubin Negative (NEGATIVE) 01/12/17 19:00 Urine Urobilinogen 0.2 mg/dL (0.2-1.0) 01/12/17 19:00 Ur Leukocyte Esterase Negative (NEGATIVE) 01/12/17 19:00 RPR Titer Nonreactive (NONREACTIVE) 01/12/17 12:56 Assessment: 01/14/17 11:16 WITHDRAWAL SX SEBORRHEIC DERMATITIS Plan: CONTINUE DETOX SELENIUM SULFIDE LOTION DIRECTED.
[2017-01-14] MEDS: SELENIUM SULFIDE 2.5% LOTION 4 OZ. TP SCH (12:31)
[2017-01-14] MEDS: chlordiazePOXIDE 5 MG CAPSULE PO SCH ×2 (17:26→22:18)
[2017-01-14] MEDS: LATANOPROST 0.005% OPHTH SOLN 2.5ML BOTTLE OU SCH (22:18)
[2017-01-14] MEDS: THIAMINE HCL 100 MG TABLET (FP) PO SCH (22:18)
[2017-01-14] MEDS: QUEtiapine FUMARATE 100 MG TABLET (FP) PO SCH (22:18)
[2017-01-15] MEDS: chlordiazePOXIDE 5 MG CAPSULE PO SCH ×2 (05:23→10:46)
[2017-01-15] MEDS: HYDROCHLOROTHIAZIDE 25 MG TABLET (FP) PO SCH (10:46)
[2017-01-15] MEDS: PRENATAL VITAMINS W/ FOLIC ACID TABLET (FP) PO SCH (10:46)
[2017-01-15] MEDS: SELENIUM SULFIDE 2.5% LOTION 4 OZ. TP SCH (10:47)
--- NOTE | 2017-01-15 11:12 | PN ---
[facility] Progress Note (SOAP) Subjective: ANXIETY,SWEATS,FATIGUE. Objective: 01/15/17 11:12 Vital Signs Temperature 97.3 F L 01/15/17 10:00 Pulse Rate 86 01/15/17 10:00 Respiratory Rate 18 01/15/17 10:00 Blood Pressure 139/88 01/15/17 10:00 O2 Sat by Pulse Oximetry (%) Laboratory Last Values WBC 8.0 K/mm3 (4.0-10.0) 01/12/17 12:56 RBC 4.51 M/mm3 (4.00-5.60) 01/12/17 12:56 Hgb 13.5 GM/dL (11.7-16.9) 01/12/17 12:56 Hct 40.3 % (35.4-49) 01/12/17 12:56 MCV 89.3 fl (80-96) 01/12/17 12:56 MCH 30.0 pg (25.7-33.7) 01/12/17 12:56 MCHC 33.6 g/dl (32.0-35.9) 01/12/17 12:56 RDW 12.7 % (11.9-15.9) 01/12/17 12:56 Plt Count 253 K/MM3 (134-434) D 01/12/17 12:56 MPV 8.0 fl (7.5-11.1) 01/12/17 12:56 Sodium 135 mmol/L (136-145) L 01/12/17 12:56 Potassium 3.6 mmol/L (3.5-5.1) D 01/12/17 12:56 Chloride 100 mmol/L (98-107) 01/12/17 12:56 Carbon Dioxide 25 mmol/L (21-32) 01/12/17 12:56 Anion Gap 10 (8-16) 01/12/17 12:56 BUN 8 mg/dL (7-18) D 01/12/17 12:56 Creatinine 0.9 mg/dL (0.7-1.3) D 01/12/17 12:56 Creat Clearance w eGFR > 60 (>60) 01/12/17 12:56 Random Glucose 108 mg/dL (74-106) H 01/12/17 12:56 Calcium 8.8 mg/dL (8.5-10.1) 01/12/17 12:56 Total Bilirubin 0.6 mg/dL (0.2-1.0) D 01/12/17 12:56 AST 96 U/L (15-37) H D 01/12/17 12:56 ALT 83 U/L (12-78) H 01/12/17 12:56 Alkaline Phosphatase 111 U/L (45-117) D 01/12/17 12:56 Total Protein 8.4 g/dl (6.4-8.2) H 01/12/17 12:56 Albumin 3.8 g/dl (3.4-5.0) 01/12/17 12:56 Urine Color Lt. yellow 01/12/17 19:00 Urine Appearance Clear 01/12/17 19:00 Urine pH 7.0 (5.0-8.0) 01/12/17 19:00 Ur Specific [place] <= 1.005 (1.001-1.035) 01/12/17 19:00 Urine Protein Negative (NEGATIVE) 01/12/17 19:00 Urine Glucose (UA) Negative (NEGATIVE) 01/12/17 19:00 Urine Ketones Negative (NEGATIVE) 01/12/17 19:00 Urine Blood Negative (NEGATIVE) 01/12/17 19:00 Urine Nitrite Negative (NEGATIVE) 01/12/17 19:00 Urine Bilirubin Negative (NEGATIVE) 01/12/17 19:00 Urine Urobilinogen 0.2 mg/dL (0.2-1.0) 01/12/17 19:00 Ur Leukocyte Esterase Negative (NEGATIVE) 01/12/17 19:00 RPR Titer Nonreactive (NONREACTIVE) 01/12/17 12:56 Assessment: 01/15/17 11:12 DECREASED WITHDRAWAL SX Plan: CONTINUE DETOX
[2017-01-15] MEDS: chlordiazePOXIDE HCL 10 MG CAPSULE PO SCH ×2 (17:32→22:04)
[2017-01-15] MEDS: LATANOPROST 0.005% OPHTH SOLN 2.5ML BOTTLE OU SCH (22:03)
[2017-01-15] MEDS: QUEtiapine FUMARATE 100 MG TABLET (FP) PO SCH (22:04)
[2017-01-15] MEDS: THIAMINE HCL 100 MG TABLET (FP) PO SCH (22:04)
[2017-01-16] MEDS: chlordiazePOXIDE HCL 10 MG CAPSULE PO SCH (05:56)
[2017-01-16] MEDS: HYDROCHLOROTHIAZIDE 25 MG TABLET (FP) PO SCH (09:15)
[2017-01-16 09:27] VITALS: BP 130/89; PULSE 90; TEMP 98.3
--- NOTE | 2017-01-16 16:01 | DS ---
[facility] Detox Discharge Summary Admission Date: 01/12/17 Discharge Date: 01/16/17 - History Present History: Alcohol Dependence Additional Comments: PATIENT GOING HOME AND WILL RETURN TO '[facility]' OUTPATIENT SUBSTANCE USE TREATMENT PROGRAM ([facility]) FOR AFTERCARE. PATIENT WAS DISCHARGED FROM DETOX UNIT IN STABLE MEDICAL CONDITION. Pertinent Past History: Arthritis, HTN, Hyperchoelsterolemia, Glaucoma, Depression, Insomnia. - Physical Exam Results Vital Signs: Vital Signs Temperature 98.3 F 01/16/17 09:26 Pulse Rate 90 01/16/17 09:26 Respiratory Rate 16 01/16/17 09:26 Blood Pressure 130/89 01/16/17 09:26 O2 Sat by Pulse Oximetry (%) Pertinent Admission Physical Exam Findings: WITHDRAWAL SYMPTOMS. Laboratory Tests 01/12/17 01/12/17 01/12/17 12:56 12:56 12:56 WBC 8.0 RBC 4.51 Hgb 13.5 Hct 40.3 MCV 89.3 MCH 30.0 MCHC 33.6 RDW 12.7 Plt Count 253 D MPV 8.0 Sodium 135 L Potassium 3.6 D Chloride 100 Carbon Dioxide 25 Anion Gap 10 BUN 8 D Creatinine 0.9 D Creat Clearance w eGFR > 60 Random Glucose 108 H Calcium 8.8 Total Bilirubin 0.6 D AST 96 H D ALT 83 H Alkaline Phosphatase 111 D Total Protein 8.4 H Albumin 3.8 Urine Color Urine Appearance Urine pH Ur Specific [place] Urine Protein Urine Glucose (UA) Urine Ketones Urine Blood Urine Nitrite Urine Bilirubin Urine Urobilinogen Ur Leukocyte Esterase RPR Titer Nonreactive 01/12/17 19:00 WBC RBC Hgb Hct MCV MCH MCHC RDW Plt Count MPV Sodium Potassium Chloride Carbon Dioxide Anion Gap BUN Creatinine Creat Clearance w eGFR Random Glucose Calcium Total Bilirubin AST ALT Alkaline Phosphatase Total Protein Albumin Urine Color Lt. yellow Urine Appearance Clear Urine pH 7.0 Ur Specific [place] <= 1.005 Urine Protein Negative Urine Glucose (UA) Negative Urine Ketones Negative Urine Blood Negative Urine Nitrite Negative Urine Bilirubin Negative Urine Urobilinogen 0.2 Ur Leukocyte Esterase Negative RPR Titer LABS NOTED. - Treatment Hospital Course: Detox Protocol Followed, Detoxed Safely, Responded well, Discharged Condition Good Patient has Accepted a Rehab Referral to: PT WILL RETURN TO [facility]. - Medication Discharge Medications: Ambulatory Orders Latanoprost 0.005% Eye Drops [Xalatan 0.005% Eye Drops -] 1 drop OU HS #1 drops 01/02/16 Hydrochlorothiazide [Hctz -] 25 mg PO DAILY 10/10/16 Folic Acid - 1 mg PO DAILY 01/12/17 Quetiapine Fumarate [Seroquel -] 100 mg PO HS 01/12/17 Selenium Sulfide [Selenium Sulfide 2.25% Shampoo] 1 applic TP BID 01/12/17 Quetiapine Fumarate [Seroquel] 100 mg PO HS #30 tablet 01/13/17 - Diagnosis (1) Alcohol dependence with uncomplicated withdrawal Status: Acute (2) Insomnia Status: Acute Qualifiers: Insomnia type: unspecified Qualified Code(s): G47.00 - Insomnia, unspecified (3) Arthritis Status: Chronic (4) Glaucoma Status: Chronic Qualifiers: Glaucoma type: unspecified Laterality: bilateral Qualified Code(s): H40.9 - Unspecified glaucoma (5) Hypertension Status: Chronic Qualifiers: Hypertension type: essential hypertension Qualified Code(s): I10 - Essential (primary) hypertension (6) Hypercholesterolemia Status: Chronic - AMA Did Patient Leave Against Medical Advice: No
== END 2017-01-16 09:41 | disposition home or self-care (01) | DRG 775 ==
LOC: YASAS 09:32 → Y3N 12:46
PROVIDERS: ADMIT Internal Medicine; ATTEND Internal Medicine
PROC: HZ2ZZZZ Detoxification Services for Substance Abuse Treatment (ICD-10-PCS; principal; 2017-01-12)
DX: F10.230 Alcohol dependence with withdrawal, uncomplicated (principal); F32.9 Major depressive disorder, single episode, unspecified; G47.00 Insomnia, unspecified; I10 Essential (primary) hypertension; E78.00 Pure hypercholesterolemia, unspecified; H40.9 Unspecified glaucoma; M12.9 Arthropathy, unspecified; L21.9 Seborrheic dermatitis, unspecified; S01.81XA Laceration without foreign body of other part of head, initial encounter; S00.33XA Contusion of nose, initial encounter; K76.0 Fatty (change of) liver, not elsewhere classified
CPT/HCPCS: 36415; 80053; 81003; 85027; 86593; 93005; 93010

== ENCOUNTER 2017-01-20 13:45 | Inpatient (IN) | payer OTHER ==
[2017-01-20 16:48] VITALS: BMI 22.8
--- NOTE | 2017-01-20 18:28 | HP ---
[facility] Rehab Assess/Revision - Admission History Admitted to Rehab from: [facility] Date of Admission to Rehab: 01/20/17 - Vital signs Vital Signs: Vital Signs Period Temp Pulse Resp BP Sys/Kwan Pulse Ox Last 24 Hr 95.5 F 110 18 140/84 - Findings Detox History & Physical reviewed: Yes Concur with findings: Yes Comments/Additional Findings: COMPLETED DETOX. ADMITTED TO REHAB PER PROTOCOL
[2017-01-20] MEDS ORDERED: IBUPROFEN 400 MG TABLET (FP) PO PRN (18:29)
[2017-01-20] MEDS ORDERED: ACETAMINOPHEN 325 MG TABLET (FP) PO PRN (18:29)
[2017-01-20] MEDS ORDERED: MAGNESIUM CITRATE 300 ML BOTTLE PO PRN (18:29)
[2017-01-20] MEDS ORDERED: MAGNESIUM HYDROX 2400MG/30ML ORAL SUSPENSION 30 ML CUP PO PRN (18:29)
[2017-01-20] MEDS ORDERED: MAG HYDROX/AL HYDROX/SIMETH 30 ML UNIT-DOSE CUP PO PRN (18:29)
[2017-01-20] MEDS ORDERED: MENTHOL/PHENOL 1 EACH UD MM PRN (18:29)
[2017-01-20] MEDS ORDERED: P-EPHED 60MG/TRIPROLIDI 2.5MG TABLET PO PRN (18:29)
[2017-01-20] MEDS ORDERED: LOPERAMIDE HCL 2 MG CAPSULE PO PRN (18:29)
[2017-01-20] MEDS ORDERED: guaiFENesin/D-METHORPHAN HB 10 ML UNIT-DOSE CUPS PO PRN (18:29)
[2017-01-20] MEDS: QUEtiapine FUMARATE 100 MG TABLET (FP) PO SCH (22:09)
[2017-01-20] MEDS: THIAMINE HCL 100 MG TABLET (FP) PO SCH (22:09)
[2017-01-20] MEDS: LATANOPROST 0.005% OPHTH SOLN 2.5ML BOTTLE OU SCH (23:49)
[2017-01-21 03:20] LABS: URINE APPEARANCE CLEAR; URINE BILIRUBIN NEGATIVE (NEGATIVE); URINE BLOOD NEGATIVE (NEGATIVE); URINE COLOR LTYELLOW; URINE GLUCOSE (UA) NEGATIVE (NEGATIVE); URINE KETONE NEGATIVE (NEGATIVE); URINE LEUK ESTERASE NEGATIVE (NEGATIVE); URINE NITRITE NEGATIVE (NEGATIVE); URINE PROTEIN NEGATIVE (NEGATIVE); URINE UROBILINOGEN NEGATIVE mg/dL (0.2-1.0)
[2017-01-21] MEDS: PRENATAL VITAMINS W/ FOLIC ACID TABLET (FP) PO SCH (10:21)
[2017-01-21] MEDS: HYDROCHLOROTHIAZIDE 25 MG TABLET (FP) PO SCH (10:21)
[2017-01-21 12:29] LABS: URINE LEUK ESTERASE Negative (NEGATIVE)
[2017-01-21] MEDS: PATIENT'S OWN MEDICATION (NON-FORMULARY) (Selenium Sulfide 1 APPLIC) TP SCH (12:33)
--- NOTE | 2017-01-21 14:33 | HP ---
Psychiatrist Admission - Data Date of interview: 01/21/17 Admission source: 3N Identifying data: This is the second 5N inpatient rehabilitation admission for this 56 year old male who is father of one 10 year old , he is domiciled and self-employed. Medical History: Hypertension,dyslipidemia,glaucoma and arthritis. Psychiatric History: Patient denies history of psychiatric hospitalizations, states he is under the care of at [facility] who prescribes Seroquel 100 mg po hs for insomnia. Physical/Sexual Abuse/Trauma History: Patient denies Vital Signs: Vital Signs - 24 hr 01/20/17 01/20/17 01/21/17 16:46 22:22 00:45 Temperature 95.5 F L 98.3 F Pulse Rate 110 H 112 H Respiratory 18 18 18 Rate Blood Pressure 140/84 123/80 01/21/17 01/21/17 03:30 07:10 Temperature 97.5 F L Pulse Rate 84 Respiratory 18 20 Rate Blood Pressure 139/92 Allergies/Adverse Reactions: Allergies Allergy/AdvReac Type Severity Reaction Status Date / Time amlodipine besylate Allergy Severe Swelling Verified 01/20/17 17:39 [From [facility]] Date of last physical exam: 01/20/17 Concur with the findings of this exam: Yes - Substance Abuse/Tx History Hx Alcohol Use: Yes (1-2 GLASS OF WINE 24 OZ BEERS.) Hx Substance Use: No Substance Use Type: Alcohol (started at age 17,) Hx Substance Use Treatment: Yes Mental Status Exam - Mental Status Exam Alert and Oriented to: Time, Place, Person Cognitive Function: Good Patient Appearance: Well Groomed Mood: Sad, Anxious Affect: Appropriate, Mood Congruent Patient Behavior: Appropriate, Cooperative Speech Pattern: Appropriate Voice Loudness: Normal Thought Process: Intact, Goal Oriented Thought Disorder: Not Present Hallucinations: Denies Suicidal Ideation: Denies Homicidal Ideation: Denies Insight/Judgement: Fair Sleep: Fair Appetite: Fair Muscle strength/Tone: Normal Gait/Station: Normal Psychiatric Findings - Problem List ([place] 1, 2,3) (1) Alcohol dependence Current Visit: Yes Status: Acute (2) Alcohol-induced mood disorder Current Visit: Yes Status: Acute (3) Alcohol induced sleep disorders Current Visit: No Status: Acute - Initial Treatment Plan Initial Treatment Plan: Will continue Seroquel, psychoeducation provided, sleep hygiene recommended.Side effects and benefits discussed with patient. Observation and monitor progress as neeed.
[2017-01-21] MEDS: LATANOPROST 0.005% OPHTH SOLN 2.5ML BOTTLE OU SCH (21:42)
[2017-01-21] MEDS: QUEtiapine FUMARATE 100 MG TABLET (FP) PO SCH (21:42)
[2017-01-21] MEDS: THIAMINE HCL 100 MG TABLET (FP) PO SCH (21:42)
[2017-01-22] MEDS: PRENATAL VITAMINS W/ FOLIC ACID TABLET (FP) PO SCH (10:04)
[2017-01-22] MEDS: SELENIUM SULFIDE 2.5% LOTION 4 OZ. TP SCH (10:04)
[2017-01-22] MEDS: HYDROCHLOROTHIAZIDE 25 MG TABLET (FP) PO SCH (10:04)
[2017-01-22] MEDS: QUEtiapine FUMARATE 100 MG TABLET (FP) PO SCH (21:22)
[2017-01-22] MEDS: LATANOPROST 0.005% OPHTH SOLN 2.5ML BOTTLE OU SCH (21:22)
[2017-01-22] MEDS: THIAMINE HCL 100 MG TABLET (FP) PO SCH (21:22)
[2017-01-23] MEDS: HYDROCHLOROTHIAZIDE 25 MG TABLET (FP) PO SCH (10:13)
[2017-01-23] MEDS: SELENIUM SULFIDE 2.5% LOTION 4 OZ. TP SCH (10:13)
[2017-01-23] MEDS: PRENATAL VITAMINS W/ FOLIC ACID TABLET (FP) PO SCH (10:13)
[2017-01-23] MEDS: THIAMINE HCL 100 MG TABLET (FP) PO SCH (21:39)
[2017-01-23] MEDS: QUEtiapine FUMARATE 100 MG TABLET (FP) PO SCH (21:39)
[2017-01-23] MEDS: LATANOPROST 0.005% OPHTH SOLN 2.5ML BOTTLE OU SCH (21:39)
[2017-01-24] MEDS: SELENIUM SULFIDE 2.5% LOTION 4 OZ. TP SCH (10:17)
[2017-01-24] MEDS: PRENATAL VITAMINS W/ FOLIC ACID TABLET (FP) PO SCH (10:17)
[2017-01-24] MEDS: HYDROCHLOROTHIAZIDE 25 MG TABLET (FP) PO SCH (10:17)
[2017-01-24] MEDS: THIAMINE HCL 100 MG TABLET (FP) PO SCH (21:28)
[2017-01-24] MEDS: LATANOPROST 0.005% OPHTH SOLN 2.5ML BOTTLE OU SCH (21:28)
[2017-01-24] MEDS: QUEtiapine FUMARATE 100 MG TABLET (FP) PO SCH (21:28)
[2017-01-25] MEDS ORDERED: hydrOXYzine PAMOATE 50 MG CAPSULE (FP) PO ONE (01:33)
[2017-01-25] MEDS: HYDROCHLOROTHIAZIDE 25 MG TABLET (FP) PO SCH (10:23)
[2017-01-25] MEDS: SELENIUM SULFIDE 2.5% LOTION 4 OZ. TP SCH (10:23)
[2017-01-25] MEDS: PRENATAL VITAMINS W/ FOLIC ACID TABLET (FP) PO SCH (10:23)
--- NOTE | 2017-01-25 14:31 | PN ---
S Progress Note Note: Patient c/o insomnia, states was given vistaril 50 mg po hs last night once was effective, wants to continue, will add PRN 50 mg po hs.
[2017-01-25] MEDS: QUEtiapine FUMARATE 100 MG TABLET (FP) PO SCH (21:50)
[2017-01-25] MEDS: THIAMINE HCL 100 MG TABLET (FP) PO SCH (21:50)
[2017-01-25] MEDS: LATANOPROST 0.005% OPHTH SOLN 2.5ML BOTTLE OU SCH (21:51)
[2017-01-25] MEDS: hydrOXYzine PAMOATE 50 MG CAPSULE (FP) PO PRN (21:52)
[2017-01-26] MEDS: SELENIUM SULFIDE 2.5% LOTION 4 OZ. TP SCH (10:22)
[2017-01-26] MEDS: PRENATAL VITAMINS W/ FOLIC ACID TABLET (FP) PO SCH (10:22)
[2017-01-26] MEDS: HYDROCHLOROTHIAZIDE 25 MG TABLET (FP) PO SCH (10:22)
[2017-01-26] MEDS: THIAMINE HCL 100 MG TABLET (FP) PO SCH (21:51)
[2017-01-26] MEDS: QUEtiapine FUMARATE 100 MG TABLET (FP) PO SCH (21:51)
[2017-01-26] MEDS: LATANOPROST 0.005% OPHTH SOLN 2.5ML BOTTLE OU SCH (21:52)
[2017-01-26] MEDS: hydrOXYzine PAMOATE 50 MG CAPSULE (FP) PO PRN (21:52)
[2017-01-27] MEDS: HYDROCHLOROTHIAZIDE 25 MG TABLET (FP) PO SCH (10:18)
[2017-01-27] MEDS: SELENIUM SULFIDE 2.5% LOTION 4 OZ. TP SCH (10:18)
[2017-01-27] MEDS: PRENATAL VITAMINS W/ FOLIC ACID TABLET (FP) PO SCH (10:18)
[2017-01-27] MEDS: QUEtiapine FUMARATE 100 MG TABLET (FP) PO SCH (21:33)
[2017-01-27] MEDS: THIAMINE HCL 100 MG TABLET (FP) PO SCH (21:33)
[2017-01-27] MEDS: hydrOXYzine PAMOATE 50 MG CAPSULE (FP) PO PRN (21:34)
[2017-01-27] MEDS: LATANOPROST 0.005% OPHTH SOLN 2.5ML BOTTLE OU SCH (21:34)
[2017-01-28] MEDS: HYDROCHLOROTHIAZIDE 25 MG TABLET (FP) PO SCH (10:01)
[2017-01-28] MEDS: SELENIUM SULFIDE 2.5% LOTION 4 OZ. TP SCH (10:01)
[2017-01-28] MEDS: PRENATAL VITAMINS W/ FOLIC ACID TABLET (FP) PO SCH (10:01)
[2017-01-28] MEDS: QUEtiapine FUMARATE 100 MG TABLET (FP) PO SCH (21:46)
[2017-01-28] MEDS: THIAMINE HCL 100 MG TABLET (FP) PO SCH (21:46)
[2017-01-28] MEDS: hydrOXYzine PAMOATE 50 MG CAPSULE (FP) PO PRN (21:46)
[2017-01-28] MEDS: LATANOPROST 0.005% OPHTH SOLN 2.5ML BOTTLE OU SCH (21:48)
[2017-01-29] MEDS: PRENATAL VITAMINS W/ FOLIC ACID TABLET (FP) PO SCH (10:02)
[2017-01-29] MEDS: HYDROCHLOROTHIAZIDE 25 MG TABLET (FP) PO SCH (10:02)
[2017-01-29] MEDS: THIAMINE HCL 100 MG TABLET (FP) PO SCH (21:54)
[2017-01-29] MEDS: hydrOXYzine PAMOATE 50 MG CAPSULE (FP) PO PRN (21:54)
[2017-01-29] MEDS: LATANOPROST 0.005% OPHTH SOLN 2.5ML BOTTLE OU SCH (21:55)
[2017-01-29] MEDS: QUEtiapine FUMARATE 100 MG TABLET (FP) PO SCH (21:55)
[2017-01-30] MEDS: PRENATAL VITAMINS W/ FOLIC ACID TABLET (FP) PO SCH (09:51)
[2017-01-30] MEDS: HYDROCHLOROTHIAZIDE 25 MG TABLET (FP) PO SCH (09:51)
[2017-01-30] MEDS: THIAMINE HCL 100 MG TABLET (FP) PO SCH (21:40)
[2017-01-30] MEDS: QUEtiapine FUMARATE 100 MG TABLET (FP) PO SCH (21:40)
[2017-01-30] MEDS: LATANOPROST 0.005% OPHTH SOLN 2.5ML BOTTLE OU SCH (21:41)
[2017-01-30] MEDS: hydrOXYzine PAMOATE 50 MG CAPSULE (FP) PO PRN (21:41)
[2017-01-31] MEDS: PRENATAL VITAMINS W/ FOLIC ACID TABLET (FP) PO SCH (09:58)
[2017-01-31] MEDS: HYDROCHLOROTHIAZIDE 25 MG TABLET (FP) PO SCH (09:58)
[2017-01-31] MEDS: hydrOXYzine PAMOATE 50 MG CAPSULE (FP) PO PRN (21:31)
[2017-01-31] MEDS: QUEtiapine FUMARATE 100 MG TABLET (FP) PO SCH (21:31)
[2017-01-31] MEDS: THIAMINE HCL 100 MG TABLET (FP) PO SCH (21:31)
[2017-01-31] MEDS: LATANOPROST 0.005% OPHTH SOLN 2.5ML BOTTLE OU SCH (21:32)
[2017-02-01] MEDS: PRENATAL VITAMINS W/ FOLIC ACID TABLET (FP) PO SCH (10:20)
[2017-02-01] MEDS: HYDROCHLOROTHIAZIDE 25 MG TABLET (FP) PO SCH (10:20)
[2017-02-01] MEDS: QUEtiapine FUMARATE 100 MG TABLET (FP) PO SCH (21:29)
[2017-02-01] MEDS: THIAMINE HCL 100 MG TABLET (FP) PO SCH (21:29)
[2017-02-01] MEDS: hydrOXYzine PAMOATE 50 MG CAPSULE (FP) PO PRN (21:30)
[2017-02-01] MEDS: LATANOPROST 0.005% OPHTH SOLN 2.5ML BOTTLE OU SCH (21:30)
[2017-02-02] MEDS: HYDROCHLOROTHIAZIDE 25 MG TABLET (FP) PO SCH (09:53)
[2017-02-02] MEDS: PRENATAL VITAMINS W/ FOLIC ACID TABLET (FP) PO SCH (09:54)
[2017-02-02] MEDS: hydrOXYzine PAMOATE 50 MG CAPSULE (FP) PO PRN (21:17)
[2017-02-02] MEDS: THIAMINE HCL 100 MG TABLET (FP) PO SCH (21:17)
[2017-02-02] MEDS: LATANOPROST 0.005% OPHTH SOLN 2.5ML BOTTLE OU SCH (21:17)
[2017-02-02] MEDS: QUEtiapine FUMARATE 100 MG TABLET (FP) PO SCH (21:18)
[2017-02-03 06:54] VITALS: BP 140/93; PULSE 98; TEMP 97.2
--- NOTE | 2017-02-03 07:36 | PN ---
Psychiatric Progress Note Vital Signs: Vital Signs Period Temp Pulse Resp BP Sys/Kwan Pulse Ox Last 24 Hr 97.2 F 85-98 16-18 140-149/86-93 Date of Session: 02/03/17 Chief Complaint:: discharge visit HPI: Patient has addressed alcohol dependence comorbid alcohol induced mood and sleep disorder. ROS: Hypertension,dyslipidemia,glaucoma and arthritis medically managed Current Medications: Active Medications Generic Name Dose Route Start Last Admin Trade Name Freq PRN Reason Stop Dose Admin Acetaminophen 650 mg 01/20/17 18:29 Tylenol - PO Q4H PRN FEVER OR PAIN Al Hydroxide/Mg Hydroxide 30 ml 01/20/17 18:29 Mylanta Oral Suspension - PO Q6H PRN DYSPEPSIA Eucalyptus/Menthol/Phenol/Sorbitol 1 each 01/20/17 18:29 Cepastat Lozenge - MM Q4H PRN SORE THROAT Guaifenesin 10 ml 01/20/17 18:29 Robitussin Dm - PO Q6H PRN COUGH Hydrochlorothiazide 25 mg 01/21/17 10:00 02/02/17 09:53 Hctz - PO 25 mg DAILY LEVAR Administration Hydroxyzine Pamoate 50 mg 01/25/17 14:28 02/02/17 21:17 Vistaril - PO 50 mg HS PRN Administration INSOMNIA Ibuprofen 400 mg 01/20/17 18:29 01/30/17 04:29 Motrin - PO 400 mg Q6H PRN Administration PAIN Latanoprost 1 drop 01/20/17 22:00 02/02/17 21:17 Xalatan 0.005% Eye Drops - OU 1 drop HS LEVAR Administration Loperamide HCl 4 mg 01/20/17 18:29 Imodium - PO Q6H PRN DIARRHEA Magnesium Citrate 300 ml 01/20/17 18:29 Citroma - PO Q48H PRN CONSTIPATION Magnesium Hydroxide 30 ml 01/20/17 18:29 Milk Of Magnesia - PO DAILY PRN CONSTIPATION Multivit/Folic Acid/Iron 1 tab 01/21/17 10:00 02/02/17 09:54 Vitamins (Sjr) - PO 1 tab DAILY LEVAR Administration Pseudoephedrine/Triprolidine 1 combo 01/20/17 18:29 Actifed - PO TID PRN NASAL CONGESTION Quetiapine Fumarate 100 mg 01/20/17 22:00 02/02/17 21:18 Seroquel - PO 100 mg HS LEVAR Administration Thiamine HCl 100 mg 01/20/17 22:00 02/02/17 21:17 Vitamin B1 - PO 100 mg HS LEVAR Administration Current Side Effect: No Lab tests ordered: No Lab tests reviewed: Yes Provider note:: Patient has completed today his treatment and met dimas stallworth, will continue address his issues at [facility] treatment program. Patient gained insights into his addiction and motivated to continue maintain abstinence. Patient identified his relapse triggers, learned copy skills in this treatment, he was encouraged to utilaze all supports available to prevent relapses.Seroquel well tolerated, patient continues to finding that medications is effective, scripst ptovided for 30 days supply to his pharmacy, patient is stable for discharge today. Total face to face time:: 25 Mental Status Exam - Mental Status Exam Alert and Oriented to: Time, Place, Person Cognitive Function: Grossly Intact Patient Appearance: Well Groomed Mood: Hopeful Affect: Appropriate, Mood Congruent, Normal Range Patient Behavior: Appropriate, Cooperative Speech Pattern: Clear, Appropriate Voice Loudness: Normal Thought Process: Intact, Goal Oriented Thought Disorder: Not Present Hallucinations: Denies Suicidal Ideation: Denies Homicidal Ideation: Denies Insight/Judgement: Fair Sleep: Fair Appetite: Fair Muscle strength/Tone: Normal Gait/Station: Normal
[2017-02-03] MEDS: PRENATAL VITAMINS W/ FOLIC ACID TABLET (FP) PO SCH (09:59)
[2017-02-03] MEDS: HYDROCHLOROTHIAZIDE 25 MG TABLET (FP) PO SCH (09:59)
== END 2017-02-03 10:50 | disposition home or self-care (01) | DRG 772 ==
LOC: YASAS 13:45 → Y5N 19:15
PROVIDERS: ADMIT Psychiatry & Neurology Psychiatry; ATTEND Psychiatry & Neurology Psychiatry
PROC: HZ42ZZZ Group Counseling for Substance Abuse Treatment, Cognitive-Behavioral (ICD-10-PCS; principal; 2017-01-20)
DX: F10.24 Alcohol dependence with alcohol-induced mood disorder (principal); F10.282 Alcohol dependence with alcohol-induced sleep disorder; I10 Essential (primary) hypertension; E78.5 Hyperlipidemia, unspecified; H40.9 Unspecified glaucoma; M19.90 Unspecified osteoarthritis, unspecified site
CPT/HCPCS: 81003

== ENCOUNTER 2018-05-02 10:23 | Inpatient (IN) | payer OTHER ==
[2018-05-02 11:06] VITALS: BMI 20.3
--- NOTE | 2018-05-02 13:44 | HP ---
CIWA Score Nausea/Vomitin-No Nausea/No Vomiting Muscle Tremors: 4-Moderate,w/Arms Extend Anxiety: 4-Mod. Anxious/Guarded Agitation: 4-Moderately Restless Paroxysmal Sweats: 3 Orientation: 0-Oriented Tacttile Disturbances: 0-None Auditory Disturbances: 0-None Visual Disturbances: 0-None Headache: 0-None Present CIWA-Ar Total Score: 15 - Admission Criteria OASAS Guidelines: Admission for Medically Managed Detox: Requires at least one of the followin. CIWA greater than 12 2. Seizures within the past 24 hours 3. Delirium tremens within the past 24 hours 4. Hallucinations within the past 24 hours 5. Acute intervention needed for co occurring medical disorder 6. Acute intervention needed for co occurring psychiatric disorder 7. Severe withdrawal that cannot be handled at a lower level of care (continued vomiting, continued diarrhea, abnormal vital signs) requiring intravenous medication and/or fluids 8. Admission ROS [facility] - HPI Allergies/Adverse Reactions: Allergies Allergy/AdvReac Type Severity Reaction Status Date / Time amlodipine besylate Allergy Severe Swelling Verified 10/22/17 11:28 [From [facility]] - Ebola screening Have you traveled outside of the country in the last 21 days: No Have you had contact with anyone from an Ebola affected area: No Have you been sick,other than usual withdrawal symptoms: No Do you have a fever: No Patient History - Patient Medical History Hx Anemia: No Hx Asthma: No Hx Chronic Obstructive Pulmonary Disease (COPD): No Hx Cancer: No Hx Cardiac Disorders: Yes Hx Congestive Heart Failure: No Hx Hypertension: Yes Hx Hypercholesterolemia: Yes (no med) Hx Pacemaker: No HX Cerebrovascular Accident: No Hx Seizures: No Hx Dementia: No Hx Diabetes: No Hx Gastrointestinal Disorders: No Hx Liver Disease: Yes (FATTY LIVER HX) Hx Genitourinary Disorders: No Hx Sexually Transmitted Disorders: No Hx Renal Disease (ESRD): No Hx Thyroid Disease: No Hx Human Immunodeficiency Virus (HIV): No (never been tested) Hx Hepatitis C: No Hx Depression: No Hx Suicide Attempt: Yes Hx Bipolar Disorder: No Hx Schizophrenia: No - Patient Surgical History Past Surgical History: No Hx Neurologic Surgery: No Hx Cataract Extraction: No Hx Cardiac Surgery: No Hx Lung Surgery: No Hx Breast Surgery: No Hx Breast Biopsy: No Hx Abdominal Surgery: No Hx Appendectomy: No Hx Cholecystectomy: No Hx Genitourinary Surgery: No Hx Section: No Hx Orthopedic Surgery: No Anesthesia Reaction: No - PPD History Date: 01/14/17 Results: 0 mm - Smoking Cessation Smoking history: Former smoker Have you smoked in the past 12 months: No Aproximately how many cigarettes per day: 0 If you are a former smoker, when did you quit?: 3 YRS AGO SMOKED CIGAR. Cigars Per Day: 1 Hx Chewing Tobacco Use: No Family Disease History - Family Disease History Family Disease History: Heart Disease: Mother (cardiac; had CVA,), CA: Sister (bone marrow; asthma), Respiratory: Sister Admission Physical Exam [facility] - Vital Signs Vital Signs: Vital Signs - 24 hr 05/02/18 11:04 Temperature 96.7 F L Pulse Rate 91 H Respiratory 20 Rate Blood Pressure 153/86 [facility] Breath Alcohol Content Breath Alcohol Content: 0.054 Urine Drug Screen - Results Drug Screen Negative: No Urine Drug Screen Results: BZO-Benzodiazepines
--- NOTE | 2018-05-02 13:56 | HP ---
Screened but not Admitted - Documentation of Visit Screened but not Admitted: Yes Patient Does Not Meet Criteria for Admission: Yes Level of Care Recommended at this Time: Other Additional Information/Explanation: pt denies having any withdrawals from alcohol. pt states he drank a glass of wine a week ago and had a shot of vodka to get into detox as per his outpatient councelor. pt will be referred to either inpatient rehab or back to his out patient program. V/S 153/86, HR 91. last WILY was 0.054.
--- NOTE | 2018-05-02 14:46 | HP ---
CIWA Score - Admission Criteria OASAS Guidelines: Admission for Medically Managed Detox: Requires at least one of the followin. CIWA greater than 12 2. Seizures within the past 24 hours 3. Delirium tremens within the past 24 hours 4. Hallucinations within the past 24 hours 5. Acute intervention needed for co occurring medical disorder 6. Acute intervention needed for co occurring psychiatric disorder 7. Severe withdrawal that cannot be handled at a lower level of care (continued vomiting, continued diarrhea, abnormal vital signs) requiring intravenous medication and/or fluids 8. Admission ROS BHS - HPI Chief Complaint: I need to go to rehab for treatment. I dont drink everyday and I can use some help to continue my treatment. I was referred by my out patient program. Allergies/Adverse Reactions: Allergies Allergy/AdvReac Type Severity Reaction Status Date / Time amlodipine besylate Allergy Severe Swelling Verified 10/22/17 11:28 [[facility]] History of Present Illness: pt is a 57yr old male with a history of alcohol abuse occasionally. Pt denies drinking everyday and shows no s/s of any withdrawals. pt was referred from his out patient rehab for further treatment due to him having one drink a week ago. Exam Limitations: No Limitations - Ebola screening Have you traveled outside of the country in the last 21 days: No Have you had contact with anyone from an Ebola affected area: No Have you been sick,other than usual withdrawal symptoms: No Do you have a fever: No - Review of Systems Constitutional: No Symptoms Reported EENT: reports: Nose Congestion, Other (h/o glucoma) Respiratory: reports: No Symptoms reported Cardiac: reports: No Symptoms Reported GI: reports: No Symptoms Reported : reports: No Symptoms Reported Musculoskeletal: reports: Muscle Pain Integumentary: reports: No Symptoms Reported Neuro: reports: No Symptoms reported Endocrine: reports: No Symptoms Reported Hematology: reports: No Symptoms Reported Psychiatric: reports: Judgement Intact, Mood/Affect Appropiate, Orientated x3, Agitated, Anxious Other Systems: Reviewed and Negative Patient History - Patient Medical History Hx Anemia: No Hx Asthma: No Hx Chronic Obstructive Pulmonary Disease (COPD): No Hx Cancer: No Hx Cardiac Disorders: No Hx Congestive Heart Failure: No Hx Hypertension: Yes Hx Hypercholesterolemia: Yes (not taking any medication) Hx Pacemaker: No HX Cerebrovascular Accident: No Hx Seizures: No Hx Dementia: No Hx Diabetes: No Hx Gastrointestinal Disorders: No Hx Liver Disease: Yes (FATTY LIVER HX) Hx Genitourinary Disorders: No Hx Sexually Transmitted Disorders: No Hx Renal Disease (ESRD): No Hx Thyroid Disease: No Hx Human Immunodeficiency Virus (HIV): No (never been tested/he believes he is negative) Hx Hepatitis C: No (denies) Hx Depression: No Hx Suicide Attempt: No (denies) Hx Bipolar Disorder: No Hx Schizophrenia: No Other Medical History: insomnia - Patient Surgical History Past Surgical History: No Hx Neurologic Surgery: No Hx Cataract Extraction: No Hx Cardiac Surgery: No Hx Lung Surgery: No Hx Breast Surgery: No Hx Breast Biopsy: No Hx Abdominal Surgery: No Hx Appendectomy: No Hx Cholecystectomy: No Hx Genitourinary Surgery: No Hx Section: No Hx Orthopedic Surgery: No Anesthesia Reaction: No - PPD History Previous Implant?: Yes Documented Results: Negative w/o proof PPD to be Administered?: Yes - Reproductive History Patient is a Female of Child Bearing Age (11 -55 yrs old): No - Smoking Cessation Smoking history: Former smoker Have you smoked in the past 12 months: No Aproximately how many cigarettes per day: 0 If you are a former smoker, when did you quit?: 3 YRS AGO SMOKED CIGAR. Cigars Per Day: 1 Hx Chewing Tobacco Use: No Initiated information on smoking cessation: Yes 'Breaking Loose' booklet given: 05/02/18 - Substance & Tx. History Hx Alcohol Use: Yes Substance Use Type: Alcohol Hx Substance Use Treatment: No (last detox 2017) - Substances Abused Alcohol Route: Oral Frequency: 1-2 times per week Amount used: a glass of wine Age of first use: 17 Date of Last Use: 05/01/18 Family Disease History - Family Disease History Family Disease History: Heart Disease: Mother (cardiac; had CVA,), CA: Sister (bone marrow; asthma), Respiratory: Sister Admission Physical Exam S - Vital Signs Vital Signs: Vital Signs - 24 hr 05/02/18 11:04 Temperature 96.7 F L Pulse Rate 91 H Respiratory 20 Rate Blood Pressure 153/86 - Physical General Appearance: Yes: Appropriately Dressed, Moderate Distress, Tremorous, Irritable, Sweating, Anxious HEENTM: Yes: Hearing grossly Normal, Normal Voice, Nasal Congestion, Rhinorrhea , Other (h/o gluacoma) Respiratory: Yes: Lungs Clear, Normal Breath Sounds, No Respiratory Distress Neck: Yes: No masses,lesions,Nodules Breast: Yes: Within Normal Limits Cardiology: Yes: Regular Rhythm, Regular Rate, S1, S2 Abdominal: Yes: Normal Bowel Sounds, Non Tender, Soft Genitourinary: Yes: Within Normal Limits Back: Yes: Normal Inspection Musculoskeletal: Yes: full range of Motion, Back pain Extremities: Yes: Normal Capillary Refill, Normal Inspection, Non-Tender, Tremors Neurological: Yes: Fully Oriented, Alert, Normal Response Integumentary: Yes: Normal Color Lymphatic: Yes: Within Normal Limits - Diagnostic (1) Alcohol dependence Current Visit: Yes Status: Suspected Qualifiers: Substance use status: uncomplicated Qualified Code(s): F10.20 - Alcohol dependence, uncomplicated (2) Arthritis Current Visit: Yes Status: Chronic (3) Glaucoma Current Visit: Yes Status: Chronic Qualifiers: Glaucoma type: unspecified Laterality: bilateral Qualified Code(s): H40.9 - Unspecified glaucoma (4) Hypercholesterolemia Current Visit: Yes Status: Chronic (5) Hypertension Current Visit: Yes Status: Chronic Qualifiers: Hypertension type: essential hypertension Qualified Code(s): I10 - Essential (primary) hypertension Cleared for Admission [facility] - Detox or Rehab [facility] Level of Care: Medically Managed Claeared for Rehab Admission: Yes [facility] Breath Alcohol Content Breath Alcohol Content: 0.054 Urine Drug Screen - Results Drug Screen Negative: No Urine Drug Screen Results: BZO-Benzodiazepines Inpatient Rehab Admission - Rehab Decision to Admit Inpatient rehab admission?: Yes - Initial Determination Are CD services needed?: Yes Free of communicable disease: Yes Not in need of hospitalization: Yes - Rehab Admission Criteria Previous failed treatment: Yes Poor recovery environment: Yes Comorbidities: Yes Lacks judgement: Yes Patient is meeting Inpatient Rehab admission criteria:: Yes
[2018-05-02] MEDS ORDERED: MENTHOL/PHENOL 1 EACH UD MM PRN (15:11)
[2018-05-02] MEDS ORDERED: ACETAMINOPHEN 325 MG TABLET (FP) PO PRN (15:11)
[2018-05-02] MEDS ORDERED: LOPERAMIDE HCL 2 MG CAPSULE PO PRN (15:11)
[2018-05-02] MEDS ORDERED: MAGNESIUM CITRATE 300 ML BOTTLE PO PRN (15:11)
[2018-05-02] MEDS ORDERED: guaiFENesin 200 MG/10 ML 10 ML UNIT-DOSE CUPS PO PRN (15:11)
[2018-05-02] MEDS ORDERED: MAG HYDROX/AL HYDROX/SIMETH 30 ML UNIT-DOSE CUP PO PRN (15:11)
[2018-05-02] MEDS ORDERED: P-EPHED 60MG/TRIPROLIDI 2.5MG TABLET PO PRN (15:11)
[2018-05-02] MEDS ORDERED: MAGNESIUM HYDROX 2400MG/30ML ORAL SUSPENSION 30 ML CUP PO PRN (15:11)
[2018-05-02] MEDS ORDERED: TUBERCULIN PPD 5 TU/0.1ML VIAL ID ONE (18:20)
[2018-05-02] MEDS: MELATONIN 5 MG TABLETS PO PRN (21:09)
[2018-05-02] MEDS: THIAMINE HCL 100 MG TABLET (FP) PO SCH (21:09)
[2018-05-03 00:11] LABS: URINE APPEARANCE CLEAR; URINE BILIRUBIN NEGATIVE (<2.0 mg/dL); URINE COLOR LTYELLOW; URINE GLUCOSE (UA) NEGATIVE (NEGATIVE); URINE KETONE NEGATIVE (NEGATIVE); URINE LEUK ESTERASE NEGATIVE (NEGATIVE); URINE NITRITE NEGATIVE (NEGATIVE); URINE PROTEIN NEGATIVE (NEGATIVE); URINE UROBILINOGEN NEGATIVE mg/dL (0.2-1.0)
--- NOTE | 2018-05-03 07:35 | CONSULT ---
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 Refer to printing specialist's summary for further information Medical History: Significant for hypertension and dyslipidemia, arthritis of both shoulders and glaucoma. Psychiatric History: Denies previous history of psychiatric treatment except taking Seroquel 100 mg po HS prescribed by YO Garcia from [facility] for insomnia Physical/Sexual Abuse/Trauma History: Denies history of emotional, physical or sexual abuse as DV relationship. No service Additional Comment: Reports of 2 previous misdemeanor arrests on charges of drinking in public Mental Status Exam - Mental Status Exam Alert and Oriented to: Time, Place, Person Cognitive Function: Fair Patient Appearance: Disheveled Mood: Hopeful, Euthymic Patient Behavior: Cooperative Speech Pattern: Clear Voice Loudness: Normal Thought Process: Intact Thought Disorder: Not Present Hallucinations: Denies Suicidal Ideation: Denies Homicidal Ideation: Denies Insight/Judgement: Fair Sleep: Poorly Appetite: Good Muscle strength/Tone: Normal Gait/Station: Normal Psychiatric Findings - Problem List ([place] 1, 2,3) (1) Alcohol-induced sleep disorder Current Visit: Yes Status: Acute (2) Alcohol dependence Current Visit: Yes Status: Acute Qualifiers: Substance use status: uncomplicated Qualified Code(s): F10.20 - Alcohol dependence, uncomplicated (3) Arthritis Current Visit: Yes Status: Chronic (4) Glaucoma Current Visit: Yes Status: Chronic Qualifiers: Glaucoma type: unspecified Laterality: bilateral Qualified Code(s): H40.9 - Unspecified glaucoma (5) Hypercholesterolemia Current Visit: Yes Status: Chronic (6) Hypertension Current Visit: Yes Status: Chronic Qualifiers: Hypertension type: essential hypertension Qualified Code(s): I10 - Essential (primary) hypertension - Initial Treatment Plan Initial Treatment Plan: 1) Continue Seroquel 100 mg po HS. 2) Continue inpatient rehabilitation
[2018-05-03 09:25] LABS: HEMATOCRIT 38.6 % (35.4-49); HEMOGLOBIN 13.5 GM/dL (11.7-16.9); MCH 31.7 pg (25.7-33.7); MEAN CELL VOLUME 90.7 fl (80-96); MEAN PLT VOLUME 8.4 fl (7.5-11.1); PLATELET COUNT 217 K/MM3 (134-434); RBC 4.26 M/mm3 (4.00-5.60)
[2018-05-03 09:31] LABS: ALK PHOS 124 U/L (45-117); ANION GAP 10 MMOL/L (8-16); BILIRUBIN,TOTAL 0.5 mg/dL (0.2-1); BLOOD UREA NITROGEN 5 mg/dL (7-18); CALCIUM 8.9 mg/dL (8.5-10.1); CHLORIDE 99 mmol/L (98-107); CO2 26 mmol/L (21-32); CREATININE 0.8 mg/dL (0.55-1.3); GLUCOSE,RANDOM 99 mg/dL (74-106); POTASSIUM 3.7 mmol/L (3.5-5.1); SGOT/AST 144 U/L (15-37); SGPT/ALT 118 U/L (13-61); SODIUM 135 mmol/L (136-145); TOT PROT 8.5 g/dl (6.4-8.2)
[2018-05-03] MEDS: PRENATAL VITAMINS W/ FOLIC ACID TABLET (FP) PO SCH (10:16)
[2018-05-03] MEDS: IBUPROFEN 400 MG TABLET (FP) PO PRN ×2 (10:17→21:22)
[2018-05-03] MEDS: hydrOXYzine PAMOATE 50 MG CAPSULE (FP) PO PRN ×2 (10:17→21:16)
--- NOTE | 2018-05-03 10:45 | EKG ---
Test Reason : Blood Pressure : / mmHG Vent. Rate : 077 BPM Atrial Rate : 077 BPM P-R Int : 184 ms QRS Dur : 106 ms QT Int : 402 ms P-R-T Axes : 078 058 056 degrees QTc Int : 454 ms NORMAL SINUS RHYTHM INCOMPLETE LEFT BUNDLE BRANCH BLOCK BORDERLINE ECG Confirmed by Jeff Hunt MD ([id number]) on 05/03/2018 10:44:35 AM Referred By: Confirmed By:Jeff Hunt MD
[2018-05-03] MEDS: HYDROCHLOROTHIAZIDE 25 MG TABLET (FP) PO SCH (12:37)
[2018-05-03] MEDS: THIAMINE HCL 100 MG TABLET (FP) PO SCH (21:14)
[2018-05-03] MEDS: MELATONIN 5 MG TABLETS PO PRN (21:15)
[2018-05-03] MEDS: LATANOPROST 0.005% OPHTH SOLN 2.5ML BOTTLE OU SCH (21:16)
[2018-05-04] MEDS: HYDROCHLOROTHIAZIDE 25 MG TABLET (FP) PO SCH (09:51)
[2018-05-04] MEDS: PRENATAL VITAMINS W/ FOLIC ACID TABLET (FP) PO SCH (09:51)
[2018-05-04] MEDS: IBUPROFEN 400 MG TABLET (FP) PO PRN (09:53)
[2018-05-04] MEDS: hydrOXYzine PAMOATE 50 MG CAPSULE (FP) PO PRN ×2 (09:53→21:12)
[2018-05-04] MEDS: CYCLOBENZAPRINE HCL 10 MG TABLET (FP) PO SCH ×2 (14:27→21:11)
[2018-05-04] MEDS: QUEtiapine FUMARATE 100 MG TABLET (FP) PO SCH (21:11)
[2018-05-04] MEDS: THIAMINE HCL 100 MG TABLET (FP) PO SCH (21:11)
[2018-05-04] MEDS: LATANOPROST 0.005% OPHTH SOLN 2.5ML BOTTLE OU SCH (21:12)
[2018-05-05] MEDS: CYCLOBENZAPRINE HCL 10 MG TABLET (FP) PO SCH ×3 (06:53→21:13)
[2018-05-05] MEDS: PRENATAL VITAMINS W/ FOLIC ACID TABLET (FP) PO SCH (09:53)
[2018-05-05] MEDS: HYDROCHLOROTHIAZIDE 25 MG TABLET (FP) PO SCH (09:53)
[2018-05-05] MEDS: hydrOXYzine PAMOATE 50 MG CAPSULE (FP) PO PRN (09:54)
[2018-05-05] MEDS: IBUPROFEN 600 MG TABLET (FP) PO PRN (09:54)
[2018-05-05] MEDS: MELATONIN 5 MG TABLETS PO PRN (21:13)
[2018-05-05] MEDS: QUEtiapine FUMARATE 100 MG TABLET (FP) PO SCH (21:13)
[2018-05-05] MEDS: LATANOPROST 0.005% OPHTH SOLN 2.5ML BOTTLE OU SCH (21:14)
[2018-05-05] MEDS: THIAMINE HCL 100 MG TABLET (FP) PO SCH (21:14)
[2018-05-06] MEDS: CYCLOBENZAPRINE HCL 10 MG TABLET (FP) PO SCH ×3 (07:52→21:17)
[2018-05-06] MEDS: PRENATAL VITAMINS W/ FOLIC ACID TABLET (FP) PO SCH (09:44)
[2018-05-06] MEDS: HYDROCHLOROTHIAZIDE 25 MG TABLET (FP) PO SCH (09:44)
[2018-05-06] MEDS: hydrOXYzine PAMOATE 50 MG CAPSULE (FP) PO PRN ×3 (09:45→21:18)
[2018-05-06] MEDS: THIAMINE HCL 100 MG TABLET (FP) PO SCH (21:17)
[2018-05-06] MEDS: QUEtiapine FUMARATE 100 MG TABLET (FP) PO SCH (21:17)
[2018-05-06] MEDS: MELATONIN 5 MG TABLETS PO PRN (21:17)
[2018-05-06] MEDS: LATANOPROST 0.005% OPHTH SOLN 2.5ML BOTTLE OU SCH (21:18)
[2018-05-07] MEDS: CYCLOBENZAPRINE HCL 10 MG TABLET (FP) PO SCH ×3 (06:55→21:12)
[2018-05-07] MEDS: PRENATAL VITAMINS W/ FOLIC ACID TABLET (FP) PO SCH (09:54)
[2018-05-07] MEDS: HYDROCHLOROTHIAZIDE 25 MG TABLET (FP) PO SCH (09:54)
[2018-05-07] MEDS: IBUPROFEN 600 MG TABLET (FP) PO PRN (09:54)
[2018-05-07] MEDS: hydrOXYzine PAMOATE 50 MG CAPSULE (FP) PO PRN ×2 (14:28→21:14)
[2018-05-07] MEDS: QUEtiapine FUMARATE 100 MG TABLET (FP) PO SCH (21:12)
[2018-05-07] MEDS: THIAMINE HCL 100 MG TABLET (FP) PO SCH (21:13)
[2018-05-07] MEDS: LATANOPROST 0.005% OPHTH SOLN 2.5ML BOTTLE OU SCH (21:14)
[2018-05-08] MEDS: CYCLOBENZAPRINE HCL 10 MG TABLET (FP) PO SCH ×3 (06:02→21:10)
[2018-05-08] MEDS: IBUPROFEN 600 MG TABLET (FP) PO PRN (09:44)
[2018-05-08] MEDS: PRENATAL VITAMINS W/ FOLIC ACID TABLET (FP) PO SCH (09:44)
[2018-05-08] MEDS: HYDROCHLOROTHIAZIDE 25 MG TABLET (FP) PO SCH (09:44)
[2018-05-08] MEDS: THIAMINE HCL 100 MG TABLET (FP) PO SCH (21:10)
[2018-05-08] MEDS: QUEtiapine FUMARATE 100 MG TABLET (FP) PO SCH (21:10)
[2018-05-08] MEDS: hydrOXYzine PAMOATE 50 MG CAPSULE (FP) PO PRN (21:10)
[2018-05-08] MEDS: LATANOPROST 0.005% OPHTH SOLN 2.5ML BOTTLE OU SCH (21:11)
[2018-05-09] MEDS: CYCLOBENZAPRINE HCL 10 MG TABLET (FP) PO SCH ×3 (06:44→21:22)
[2018-05-09] MEDS: hydrOXYzine PAMOATE 50 MG CAPSULE (FP) PO PRN (10:00)
[2018-05-09] MEDS: IBUPROFEN 600 MG TABLET (FP) PO PRN ×2 (10:00→21:20)
[2018-05-09] MEDS: HYDROCHLOROTHIAZIDE 25 MG TABLET (FP) PO SCH (10:00)
[2018-05-09] MEDS: PRENATAL VITAMINS W/ FOLIC ACID TABLET (FP) PO SCH (10:00)
[2018-05-09] MEDS: QUEtiapine FUMARATE 100 MG TABLET (FP) PO SCH (21:21)
[2018-05-09] MEDS: THIAMINE HCL 100 MG TABLET (FP) PO SCH (21:21)
[2018-05-09] MEDS: LATANOPROST 0.005% OPHTH SOLN 2.5ML BOTTLE OU SCH (21:22)
[2018-05-09] MEDS: MELATONIN 5 MG TABLETS PO PRN (21:22)
[2018-05-10] MEDS: CYCLOBENZAPRINE HCL 10 MG TABLET (FP) PO SCH ×3 (06:08→21:06)
[2018-05-10] MEDS: HYDROCHLOROTHIAZIDE 25 MG TABLET (FP) PO SCH (09:46)
[2018-05-10] MEDS: PRENATAL VITAMINS W/ FOLIC ACID TABLET (FP) PO SCH (09:46)
[2018-05-10] MEDS: hydrOXYzine PAMOATE 50 MG CAPSULE (FP) PO PRN (09:47)
[2018-05-10] MEDS: QUEtiapine FUMARATE 100 MG TABLET (FP) PO SCH (21:06)
[2018-05-10] MEDS: THIAMINE HCL 100 MG TABLET (FP) PO SCH (21:07)
[2018-05-10] MEDS: MELATONIN 5 MG TABLETS PO PRN (21:07)
[2018-05-10] MEDS: LATANOPROST 0.005% OPHTH SOLN 2.5ML BOTTLE OU SCH (21:07)
[2018-05-11] MEDS: CYCLOBENZAPRINE HCL 10 MG TABLET (FP) PO SCH ×3 (06:14→21:08)
[2018-05-11] MEDS: HYDROCHLOROTHIAZIDE 25 MG TABLET (FP) PO SCH (10:01)
[2018-05-11] MEDS: PRENATAL VITAMINS W/ FOLIC ACID TABLET (FP) PO SCH (10:01)
[2018-05-11] MEDS: IBUPROFEN 600 MG TABLET (FP) PO PRN (10:01)
[2018-05-11] MEDS: hydrOXYzine PAMOATE 50 MG CAPSULE (FP) PO PRN ×2 (10:02→21:10)
[2018-05-11] MEDS: QUEtiapine FUMARATE 100 MG TABLET (FP) PO SCH (21:08)
[2018-05-11] MEDS: THIAMINE HCL 100 MG TABLET (FP) PO SCH (21:08)
[2018-05-11] MEDS: MELATONIN 5 MG TABLETS PO PRN (21:09)
[2018-05-11] MEDS: LATANOPROST 0.005% OPHTH SOLN 2.5ML BOTTLE OU SCH (21:09)
[2018-05-12] MEDS: CYCLOBENZAPRINE HCL 10 MG TABLET (FP) PO SCH ×4 (07:21→21:13)
[2018-05-12] MEDS: hydrOXYzine PAMOATE 50 MG CAPSULE (FP) PO PRN ×2 (10:32→14:30)
[2018-05-12] MEDS: HYDROCHLOROTHIAZIDE 25 MG TABLET (FP) PO SCH (10:32)
[2018-05-12] MEDS: PRENATAL VITAMINS W/ FOLIC ACID TABLET (FP) PO SCH (10:32)
[2018-05-12] MEDS: IBUPROFEN 600 MG TABLET (FP) PO PRN (14:30)
[2018-05-12] MEDS: QUEtiapine FUMARATE 100 MG TABLET (FP) PO SCH (21:13)
[2018-05-12] MEDS: THIAMINE HCL 100 MG TABLET (FP) PO SCH (21:13)
[2018-05-12] MEDS: LATANOPROST 0.005% OPHTH SOLN 2.5ML BOTTLE OU SCH (21:13)
[2018-05-12] MEDS: MELATONIN 5 MG TABLETS PO PRN (21:13)
[2018-05-13] MEDS: CYCLOBENZAPRINE HCL 10 MG TABLET (FP) PO SCH ×3 (06:02→21:07)
[2018-05-13] MEDS: HYDROCHLOROTHIAZIDE 25 MG TABLET (FP) PO SCH (10:07)
[2018-05-13] MEDS: hydrOXYzine PAMOATE 50 MG CAPSULE (FP) PO PRN ×2 (10:07→21:09)
[2018-05-13] MEDS: PRENATAL VITAMINS W/ FOLIC ACID TABLET (FP) PO SCH (10:07)
[2018-05-13] MEDS: IBUPROFEN 600 MG TABLET (FP) PO PRN (10:08)
[2018-05-13] MEDS: LATANOPROST 0.005% OPHTH SOLN 2.5ML BOTTLE OU SCH (21:07)
[2018-05-13] MEDS: MELATONIN 5 MG TABLETS PO PRN (21:08)
[2018-05-13] MEDS: QUEtiapine FUMARATE 100 MG TABLET (FP) PO SCH (21:08)
[2018-05-13] MEDS: THIAMINE HCL 100 MG TABLET (FP) PO SCH (21:08)
[2018-05-14] MEDS: CYCLOBENZAPRINE HCL 10 MG TABLET (FP) PO SCH ×3 (06:17→21:09)
[2018-05-14] MEDS: HYDROCHLOROTHIAZIDE 25 MG TABLET (FP) PO SCH (09:30)
[2018-05-14] MEDS: PRENATAL VITAMINS W/ FOLIC ACID TABLET (FP) PO SCH (09:30)
[2018-05-14] MEDS: QUEtiapine FUMARATE 100 MG TABLET (FP) PO SCH (21:09)
[2018-05-14] MEDS: THIAMINE HCL 100 MG TABLET (FP) PO SCH (21:09)
[2018-05-14] MEDS: LATANOPROST 0.005% OPHTH SOLN 2.5ML BOTTLE OU SCH (21:09)
[2018-05-14] MEDS: MELATONIN 5 MG TABLETS PO PRN (21:10)
[2018-05-15] MEDS: CYCLOBENZAPRINE HCL 10 MG TABLET (FP) PO SCH ×3 (06:48→21:11)
[2018-05-15] MEDS: PRENATAL VITAMINS W/ FOLIC ACID TABLET (FP) PO SCH (09:41)
[2018-05-15] MEDS: HYDROCHLOROTHIAZIDE 25 MG TABLET (FP) PO SCH (09:41)
[2018-05-15] MEDS: hydrOXYzine PAMOATE 50 MG CAPSULE (FP) PO PRN (09:41)
[2018-05-15] MEDS: QUEtiapine FUMARATE 100 MG TABLET (FP) PO SCH (21:11)
[2018-05-15] MEDS: LATANOPROST 0.005% OPHTH SOLN 2.5ML BOTTLE OU SCH (21:11)
[2018-05-15] MEDS: THIAMINE HCL 100 MG TABLET (FP) PO SCH (21:11)
[2018-05-15] MEDS: IBUPROFEN 600 MG TABLET (FP) PO PRN (21:13)
[2018-05-16] MEDS: CYCLOBENZAPRINE HCL 10 MG TABLET (FP) PO SCH ×3 (06:07→21:08)
[2018-05-16] MEDS: PRENATAL VITAMINS W/ FOLIC ACID TABLET (FP) PO SCH (10:13)
[2018-05-16] MEDS: HYDROCHLOROTHIAZIDE 25 MG TABLET (FP) PO SCH (10:13)
[2018-05-16] MEDS: IBUPROFEN 600 MG TABLET (FP) PO PRN (10:13)
[2018-05-16] MEDS: hydrOXYzine PAMOATE 50 MG CAPSULE (FP) PO PRN ×2 (10:14→21:08)
--- NOTE | 2018-05-16 14:57 | PN ---
[facility] Progress Note Note: Patient is scheduled for discharge tomorrow. Script for 30 days supply of Seroquel 100 mg po HS will be electronically transferred to [facility] at [address] [place], [place] [id number]
[2018-05-16] MEDS: MELATONIN 5 MG TABLETS PO PRN (21:08)
[2018-05-16] MEDS: QUEtiapine FUMARATE 100 MG TABLET (FP) PO SCH (21:08)
[2018-05-16] MEDS: THIAMINE HCL 100 MG TABLET (FP) PO SCH (21:08)
[2018-05-16] MEDS: LATANOPROST 0.005% OPHTH SOLN 2.5ML BOTTLE OU SCH (21:11)
[2018-05-17] MEDS: CYCLOBENZAPRINE HCL 10 MG TABLET (FP) PO SCH (06:09)
[2018-05-17 06:41] VITALS: BP 123/83; PULSE 90; TEMP 98.1
[2018-05-17] MEDS: HYDROCHLOROTHIAZIDE 25 MG TABLET (FP) PO SCH (09:24)
[2018-05-17] MEDS: PRENATAL VITAMINS W/ FOLIC ACID TABLET (FP) PO SCH (09:24)
--- NOTE | 2018-05-17 09:57 | PN ---
[facility] Progress Note Note: PT COMPLETED REHAB AND DISCHARGED TODAY. PT MET WITH HIS COUNSELOR AND HAS BEEN REFERRED FOR CD AFTERCARE TO [facility] ON [address] [place] [address]. PT REPORTS HE HAS A PCP, DR. RADAMES CASTELLON AT [facility], [place], [place] FOR MEDICAL MANAGEMENT. COURTESY RX FOR HYDROCHLOROTHIAZIDE 25 MG PO DAILY ELECTRONICALLLY SENT TO [facility] FOR PT TO [employer] AFTER DISCHARGE. PT IS ALERT O X 3. DENIES S/H/I. Vital Signs - 24 hr 05/16/18 05/17/18 05/17/18 10:00 00:30 03:30 Temperature Pulse Rate 102 H Respiratory 20 18 18 Rate Blood Pressure 125/74 05/17/18 06:41 Temperature 98.1 F Pulse Rate 90 Respiratory 16 Rate Blood Pressure 123/83 Laboratory Tests 05/02/18 05/03/18 05/03/18 22:00 06:00 06:00 WBC 7.0 RBC 4.26 Hgb 13.5 Hct 38.6 MCV 90.7 MCH 31.7 MCHC 35.0 RDW 14.0 Plt Count 217 MPV 8.4 Sodium 135 L Potassium 3.7 Chloride 99 Carbon Dioxide 26 Anion Gap 10 BUN 5 L Creatinine 0.8 Creat Clearance w eGFR 98.94 Random Glucose 99 Calcium 8.9 Total Bilirubin 0.5 AST 144 H ALT 118 H Alkaline Phosphatase 124 H Total Protein 8.5 H Albumin 4.0 Urine Color Ltyellow Urine Appearance Clear Urine pH 7.0 Ur Specific Fonda 1.005 L Urine Protein Negative Urine Glucose (UA) Negative Urine Ketones Negative Urine Blood Negative Urine Nitrite Negative Urine Bilirubin Negative Urine Urobilinogen Negative Ur Leukocyte Esterase Negative RPR Titer 05/03/18 06:00 WBC RBC Hgb Hct MCV MCH MCHC RDW Plt Count MPV Sodium Potassium Chloride Carbon Dioxide Anion Gap BUN Creatinine Creat Clearance w eGFR Random Glucose Calcium Total Bilirubin AST ALT Alkaline Phosphatase Total Protein Albumin Urine Color Urine Appearance Urine pH Ur Specific Fonda Urine Protein Urine Glucose (UA) Urine Ketones Urine Blood Urine Nitrite Urine Bilirubin Urine Urobilinogen Ur Leukocyte Esterase RPR Titer Nonreactive NAD MEDICALLY STABLE PLAN:FOLLOW UP WITH CD AFTERCARE AT [facility] RECOMMENDED FOLLOW UP WITH YOUR PCP AT [facility] WITHIN 1 WEEK AFTER DISCHARGE FOR MEDICAL MANAGEMENT. Current Active Problems Alcohol dependence (Chronic) Arthritis (Chronic) Glaucoma (Chronic) Hypercholesterolemia (Chronic) Hypertension (Chronic)
== END 2018-05-17 09:25 | disposition home or self-care (01) | DRG 772 ==
LOC: YASAS 10:23 → Y5N 15:21
PROVIDERS: ADMIT Neuromusculoskeletal Medicine & OMM; ATTEND Neuromusculoskeletal Medicine & OMM
PROC: HZ42ZZZ Group Counseling for Substance Abuse Treatment, Cognitive-Behavioral (ICD-10-PCS; principal; 2018-05-02)
DX: F10.20 Alcohol dependence, uncomplicated (principal); F10.282 Alcohol dependence with alcohol-induced sleep disorder; G47.00 Insomnia, unspecified; I10 Essential (primary) hypertension; E78.5 Hyperlipidemia, unspecified; H40.9 Unspecified glaucoma; M13.812 Other specified arthritis, left shoulder; M13.811 Other specified arthritis, right shoulder
CPT/HCPCS: 36415; 80053; 81003; 85027; 86593; 90853; 93005; 93010

== ENCOUNTER 2019-03-07 10:37 | Inpatient (IN) | payer OTHER ==
[2019-03-07 11:47] VITALS: BMI 20.3
--- NOTE | 2019-03-07 12:10 | HP ---
CIWA Score Nausea/Vomitin-No Nausea/No Vomiting Muscle Tremors: None Anxiety: 1-Mildly Anxious Agitation: 0-Normal Activity Paroxysmal Sweats: No Perspiration Orientation: 0-Oriented Tacttile Disturbances: 0-None Auditory Disturbances: 0-None Visual Disturbances: 0-None Headache: 0-None Present CIWA-Ar Total Score: 1 - Admission Criteria OASAS Guidelines: Admission for Medically Managed Detox: Requires at least one of the followin. CIWA greater than 12 2. Seizures within the past 24 hours 3. Delirium tremens within the past 24 hours 4. Hallucinations within the past 24 hours 5. Acute intervention needed for co occurring medical disorder 6. Acute intervention needed for co occurring psychiatric disorder 7. Severe withdrawal that cannot be handled at a lower level of care (continued vomiting, continued diarrhea, abnormal vital signs) requiring intravenous medication and/or fluids 8. Admitting History and Physical - Smoking History Smoking history: Never smoked Have you smoked in the past 12 months: No Aproximately how many cigarettes per day: 0 If you are a former smoker, when did you quit?: 3 YRS AGO SMOKED CIGAR. - Alcohol/Substance Use Hx Alcohol Use: Yes Admission [facility] Allergies/Adverse Reactions: Allergies Allergy/AdvReac Type Severity Reaction Status Date / Time amlodipine besylate Allergy Severe Swelling Verified 03/07/19 12:04 [From [facility]] History of Present Illness: pt here referred by outpt program for continued etoh use , reports etoh use 4 x /week , " I don't drink excessively , 1or 2 drinks and that's it " . Exam Limitations: No Limitations - Ebola screening Have you traveled outside of the country in the last 21 days: No Have you had contact with anyone from an Ebola affected area: No Do you have a fever: No - Review of Systems Constitutional: No Symptoms Reported EENT: reports: Other (glaucoma) Respiratory: reports: No Symptoms reported Cardiac: reports: No Symptoms Reported GI: reports: No Symptoms Reported : reports: No Symptoms Reported Musculoskeletal: reports: Other (neck pain , right wrist , left shoulder [place] [place] .) Integumentary: reports: Other (eczema) Neuro: reports: No Symptoms reported Endocrine: reports: No Symptoms Reported Psychiatric: reports: Orientated x3, Anxious Patient History - Patient Medical History Hx Anemia: No Hx Asthma: No Hx Chronic Obstructive Pulmonary Disease (COPD): No Hx Cancer: No Hx Cardiac Disorders: No Hx Congestive Heart Failure: No Hx Hypertension: No Hx Hypercholesterolemia: Yes (not taking any medication because of liver) Hx Pacemaker: No HX Cerebrovascular Accident: No Hx Seizures: No Hx Dementia: No Hx Diabetes: No Hx Gastrointestinal Disorders: No Hx Liver Disease: Yes (FATTY LIVER HX) Hx Genitourinary Disorders: No Hx Sexually Transmitted Disorders: No Hx Renal Disease (ESRD): No Hx Thyroid Disease: No Hx Human Immunodeficiency Virus (HIV): No (never been tested/he believes he is negative) Hx Hepatitis C: No Hx Depression: No Hx Suicide Attempt: No Hx Bipolar Disorder: No Hx Schizophrenia: No - Patient Surgical History Past Surgical History: Yes Hx Neurologic Surgery: No Hx Cataract Extraction: No Hx Cardiac Surgery: No Hx Lung Surgery: No Hx Breast Surgery: No Hx Breast Biopsy: No Hx Abdominal Surgery: No Hx Appendectomy: No Hx Cholecystectomy: No Hx Genitourinary Surgery: No Hx Section: No Hx Orthopedic Surgery: No Other Surgical History: 6 niurka to posterior scalp Anesthesia Reaction: No - PPD History Previous Implant?: Yes Documented Results: Negative w/proof Implanted On Prior [facility] Admission?: Yes Date: 05/04/18 Results: 0 mm - Smoking Cessation Smoking history: Never smoked Have you smoked in the past 12 months: No Aproximately how many cigarettes per day: 0 If you are a former smoker, when did you quit?: 3 YRS AGO SMOKED CIGAR. Cigars Per Day: 1 Hx Chewing Tobacco Use: No - Substances abused Alcohol Substance route: Oral Frequency: 3-6 times per week Amount used: feng- 2 nibs/ beers- 2 x 12oz beers Age of first use: 17 Date of last use: 03/07/19 Admission Physical Exam S - Vital Signs Vital Signs: Vital Signs - 24 hr 03/07/19 11:42 Temperature 99.1 F Pulse Rate 62 Respiratory 18 Rate Blood Pressure 146/89 - Physical General Appearance: Yes: Mild Distress, Anxious HEENTM: Yes: EOMI, Normocephalic, Normal Voice Respiratory: Yes: Chest Non-Tender, Lungs Clear, Normal Breath Sounds, No Respiratory Distress, No Accessory Muscle Use Neck: Yes: No masses,lesions,Nodules, Trachea in good position Cardiology: Yes: Regular Rhythm, Regular Rate, S1, S2 Abdominal: Yes: Non Tender, Soft Musculoskeletal: Yes: Gait Steady Extremities: Yes: Normal Range of Motion, Non-Tender Neurological: Yes: Alert, Motor Strength 5/5, Normal Mood/Affect Integumentary: Yes: Warm - Diagnostic (1) Alcohol use disorder Current Visit: Yes Status: Chronic Breathalyzer - Breathalyzer Breathalyzer: 0.005 Urine Drug Screen - Control Is test valid?: Yes Inpatient Rehab Admission - Rehab Decision to Admit Inpatient rehab admission?: Yes - Initial Determination Are CD services needed?: Yes Free of communicable disease: Yes Not in need of hospitalization: Yes - Rehab Admission Criteria Previous failed treatment: Yes Poor recovery environment: No Comorbidities: No Lacks judgement: No Patient is meeting Inpatient Rehab admission criteria:: Yes (referred by outpt program)
[2019-03-07] MEDS ORDERED: P-EPHED 60MG/TRIPROLIDI 2.5MG TABLET PO PRN (12:21)
[2019-03-07] MEDS ORDERED: LOPERAMIDE HCL 2 MG CAPSULE PO PRN (12:21)
[2019-03-07] MEDS ORDERED: guaiFENesin 200 MG/10 ML 10 ML UNIT-DOSE CUPS PO PRN (12:21)
[2019-03-07] MEDS ORDERED: ACETAMINOPHEN 325 MG TABLET (FP) PO PRN (12:21)
[2019-03-07] MEDS ORDERED: MAG HYDROX/AL HYDROX/SIMETH 30 ML UNIT-DOSE CUP PO PRN (12:21)
[2019-03-07] MEDS ORDERED: MENTHOL/PHENOL 1 EACH UD MM PRN (12:21)
[2019-03-07] MEDS ORDERED: MAGNESIUM CITRATE 300 ML BOTTLE PO PRN (12:21)
--- NOTE | 2019-03-07 15:17 | PN ---
[facility] Progress Note Note: Pt is a 58 y/o male with a hx of chronic alcohol use disorder admitted today to rehab [address] [place] [address]. Pt was referred from his Out Patient program, [facility] [address] due to "drinking before coming to program/smell of alcohol on breath". Pt has a hx of multiple treatment to this facility. Pt reports he has primary care with Dr. Viktoriya Albrecht at [facility] on [place], [place]. Reports he had appointment to see her on 02/28/19 but has rescheduled to 03/31/19. PMHx:HTN,Glaucoma,bilateral(pt reports he left his medications at home). Psych Hx:Denies Vital Signs - 24 hr 03/07/19 11:42 Temperature 99.1 F Pulse Rate 62 Respiratory 18 Rate Blood Pressure 146/89 labs pending Alert o x 3 nad oob ambulating with steady gait extremities/skin:no edema;skin intact. A/P new rehab patient Maintain safety increase po fluids. cont rehab.
[2019-03-07] MEDS: IBUPROFEN 400 MG TABLET (FP) PO PRN (15:27)
[2019-03-07] MEDS: CYCLOBENZAPRINE HCL 10 MG TABLET (FP) PO PRN (17:03)
[2019-03-07 17:37] LABS: HEMOGLOBIN 13.1 GM/dL (11.7-16.9); MCH 30.3 pg (25.7-33.7); MCHC 33.6 g/dl (32.0-35.9); MEAN CELL VOLUME 90.2 fl (80-96); MEAN PLT VOLUME 7.9 fl (7.5-11.1); PLATELET COUNT 349 K/MM3 (134-434); RBC 4.33 M/mm3 (4.00-5.60); RDW 13.7 % (11.9-15.9); WHITE BLOOD COUNT 7.5 K/mm3 (4.0-10.0)
[2019-03-07 17:46] LABS: ALBUMIN 4.4 g/dl (3.4-5.0); BILIRUBIN,TOTAL 1.4 mg/dL (0.2-1); BLOOD UREA NITROGEN 14.5 mg/dL (7-18); CALCIUM 9.4 mg/dL (8.5-10.1); CREATININE 0.8 mg/dL (0.55-1.3); POTASSIUM 3.9 mmol/L (3.5-5.1); TOT PROT 8.1 g/dl (6.4-8.2)
[2019-03-07] MEDS: MELATONIN 5 MG TABLETS PO PRN (21:49)
[2019-03-07] MEDS: THIAMINE HCL 100 MG TABLET (FP) PO SCH (21:49)
[2019-03-07] MEDS: LATANOPROST 0.005% OPHTH SOLN 2.5ML BOTTLE OU SCH (21:50)
[2019-03-08] MEDS: MELATONIN 5 MG TABLETS PO PRN ×2 (01:04→21:55)
[2019-03-08] MEDS: IBUPROFEN 400 MG TABLET (FP) PO PRN ×3 (01:04→21:54)
[2019-03-08] MEDS: HYDROCHLOROTHIAZIDE 25 MG TABLET (FP) PO SCH (10:51)
[2019-03-08] MEDS: PRENATAL VITAMINS W/ FOLIC ACID TABLET (FP) PO SCH (10:51)
--- NOTE | 2019-03-08 13:44 | CONSULT ---
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 Refer to addiction counselor's summary for further information Medical History: Significant for hypertension and dyslipidemia, arthritis of both shoulders and glaucoma. Psychiatric History: Denies previous history of psychiatric treatment except taking trazadone 100 mg po HS prescribed by PCP for insomnia Physical/Sexual Abuse/Trauma History: Denies history of emotional, physical or sexual abuse as DV relationship. No service Additional Comment: Reports of 2 previous misdemeanor arrests on charges of drinking in public Mental Status Exam - Mental Status Exam Alert and Oriented to: Time, Place, Person Cognitive Function: Fair Patient Appearance: Well Groomed Mood: Hopeful, Euthymic Affect: Appropriate Speech Pattern: Clear Voice Loudness: Normal Thought Process: Intact, Goal Oriented Hallucinations: Denies Suicidal Ideation: Denies Insight/Judgement: Fair Sleep: Poorly Appetite: Good Muscle strength/Tone: Normal Gait/Station: Normal Psychiatric Findings - Problem List ([place] 1, 2,3) (1) Alcohol-induced sleep disorder Current Visit: No Status: Acute (2) Alcohol dependence Current Visit: Yes Status: Acute Qualifiers: Substance use status: uncomplicated Qualified Code(s): F10.20 - Alcohol dependence, uncomplicated Comment: cont naltrexone another week - consider switch to Vivitrol if no symptoms - states he has not had any alcohol noted 06/09/18 AST=66 which is decreased from 144 on 05/03/18; AST =57 (was 118 on 05/03/18) (3) Arthritis Current Visit: No Status: Chronic (4) Glaucoma Current Visit: No Status: Chronic Qualifiers: Glaucoma type: unspecified Laterality: bilateral Qualified Code(s): H40.9 - Unspecified glaucoma Comment: on drops, sees optho (5) Hypercholesterolemia Current Visit: No Status: Chronic (6) Hypertension Current Visit: No Status: Chronic Qualifiers: Hypertension type: essential hypertension Qualified Code(s): I10 - Essential (primary) hypertension Comment: to f/u with primary - on HCTZ - Initial Treatment Plan Initial Treatment Plan: 1) Continue Trazadone 100 mg po HS. 2) Continue inpatient rehabilitation
[2019-03-08 17:43] LABS: HYALINE CASTS 6 /lpf (0-8); PH,URINE 7.5 (5.0-8.0); URINE APPEARANCE CLEAR; URINE BACTERIA 146.1 /hpf (NEGATIVE); URINE BILIRUBIN 1+ (NEGATIVE); URINE COLOR DK YELLOW; URINE GLUCOSE (UA) NEGATIVE (NEGATIVE); URINE KETONE TRACE (NEGATIVE); URINE LEUK ESTERASE TRACE (NEGATIVE); URINE NITRITE NEGATIVE (NEGATIVE); URINE PROTEIN 2+ (NEGATIVE); URINE RBC 3 /hpf (0-4); URINE WBC 1 /hpf (0-5)
[2019-03-08] MEDS: traZODone HCL 100 MG TABLET (FP) PO SCH (21:52)
[2019-03-08] MEDS: THIAMINE HCL 100 MG TABLET (FP) PO SCH (21:52)
[2019-03-08] MEDS: CYCLOBENZAPRINE HCL 10 MG TABLET (FP) PO PRN (21:54)
[2019-03-08] MEDS: LATANOPROST 0.005% OPHTH SOLN 2.5ML BOTTLE OU SCH (21:55)
[2019-03-09] MEDS: PRENATAL VITAMINS W/ FOLIC ACID TABLET (FP) PO SCH (10:40)
[2019-03-09] MEDS: IBUPROFEN 400 MG TABLET (FP) PO PRN ×2 (10:40→21:40)
[2019-03-09] MEDS: HYDROCHLOROTHIAZIDE 25 MG TABLET (FP) PO SCH (10:40)
[2019-03-09] MEDS: CYCLOBENZAPRINE HCL 10 MG TABLET (FP) PO PRN (10:40)
[2019-03-09] MEDS: traZODone HCL 100 MG TABLET (FP) PO SCH (21:40)
[2019-03-09] MEDS: THIAMINE HCL 100 MG TABLET (FP) PO SCH (21:40)
[2019-03-09] MEDS: LATANOPROST 0.005% OPHTH SOLN 2.5ML BOTTLE OU SCH (21:40)
[2019-03-09] MEDS: MELATONIN 5 MG TABLETS PO PRN (21:40)
[2019-03-10] MEDS: PRENATAL VITAMINS W/ FOLIC ACID TABLET (FP) PO SCH (10:48)
[2019-03-10] MEDS: HYDROCHLOROTHIAZIDE 25 MG TABLET (FP) PO SCH (10:48)
[2019-03-10] MEDS: IBUPROFEN 400 MG TABLET (FP) PO PRN (10:49)
[2019-03-10] MEDS: CYCLOBENZAPRINE HCL 10 MG TABLET (FP) PO PRN ×2 (10:49→21:31)
[2019-03-10] MEDS: traZODone HCL 100 MG TABLET (FP) PO SCH (21:28)
[2019-03-10] MEDS: THIAMINE HCL 100 MG TABLET (FP) PO SCH (21:29)
[2019-03-10] MEDS: LATANOPROST 0.005% OPHTH SOLN 2.5ML BOTTLE OU SCH (21:29)
[2019-03-11] MEDS: HYDROCHLOROTHIAZIDE 25 MG TABLET (FP) PO SCH (10:19)
[2019-03-11] MEDS: IBUPROFEN 400 MG TABLET (FP) PO PRN ×2 (10:19→22:01)
[2019-03-11] MEDS: CYCLOBENZAPRINE HCL 10 MG TABLET (FP) PO PRN ×2 (10:19→22:01)
[2019-03-11] MEDS: PRENATAL VITAMINS W/ FOLIC ACID TABLET (FP) PO SCH (10:20)
[2019-03-11] MEDS: LATANOPROST 0.005% OPHTH SOLN 2.5ML BOTTLE OU SCH (21:59)
[2019-03-11] MEDS: THIAMINE HCL 100 MG TABLET (FP) PO SCH (22:01)
[2019-03-11] MEDS: traZODone HCL 100 MG TABLET (FP) PO SCH (22:01)
[2019-03-12] MEDS: HYDROCHLOROTHIAZIDE 25 MG TABLET (FP) PO SCH (10:43)
[2019-03-12] MEDS: IBUPROFEN 400 MG TABLET (FP) PO PRN (10:43)
[2019-03-12] MEDS: PRENATAL VITAMINS W/ FOLIC ACID TABLET (FP) PO SCH (10:43)
[2019-03-12] MEDS: CYCLOBENZAPRINE HCL 10 MG TABLET (FP) PO PRN (10:43)
[2019-03-12] MEDS: THIAMINE HCL 100 MG TABLET (FP) PO SCH (21:47)
[2019-03-12] MEDS: traZODone HCL 100 MG TABLET (FP) PO SCH (21:47)
[2019-03-12] MEDS: MELATONIN 5 MG TABLETS PO PRN (21:47)
[2019-03-12] MEDS: LATANOPROST 0.005% OPHTH SOLN 2.5ML BOTTLE OU SCH (21:48)
[2019-03-13] MEDS: HYDROCHLOROTHIAZIDE 25 MG TABLET (FP) PO SCH (11:17)
[2019-03-13] MEDS: PRENATAL VITAMINS W/ FOLIC ACID TABLET (FP) PO SCH (11:17)
[2019-03-13] MEDS: IBUPROFEN 400 MG TABLET (FP) PO PRN (11:20)
[2019-03-13] MEDS: CYCLOBENZAPRINE HCL 10 MG TABLET (FP) PO PRN ×2 (11:21→21:44)
[2019-03-13] MEDS: MELATONIN 5 MG TABLETS PO PRN (21:42)
[2019-03-13] MEDS: traZODone HCL 100 MG TABLET (FP) PO SCH (21:42)
[2019-03-13] MEDS: THIAMINE HCL 100 MG TABLET (FP) PO SCH (21:42)
[2019-03-13] MEDS: LATANOPROST 0.005% OPHTH SOLN 2.5ML BOTTLE OU SCH (21:43)
[2019-03-14] MEDS: HYDROCHLOROTHIAZIDE 25 MG TABLET (FP) PO SCH (10:24)
[2019-03-14] MEDS: PRENATAL VITAMINS W/ FOLIC ACID TABLET (FP) PO SCH (10:24)
[2019-03-14] MEDS: LATANOPROST 0.005% OPHTH SOLN 2.5ML BOTTLE OU SCH (21:40)
[2019-03-14] MEDS: CYCLOBENZAPRINE HCL 10 MG TABLET (FP) PO PRN (21:41)
[2019-03-14] MEDS: THIAMINE HCL 100 MG TABLET (FP) PO SCH (21:41)
[2019-03-14] MEDS: traZODone HCL 100 MG TABLET (FP) PO SCH (21:41)
[2019-03-15] MEDS: PRENATAL VITAMINS W/ FOLIC ACID TABLET (FP) PO SCH (10:56)
[2019-03-15] MEDS: IBUPROFEN 400 MG TABLET (FP) PO PRN ×2 (10:57→21:49)
[2019-03-15] MEDS: HYDROCHLOROTHIAZIDE 25 MG TABLET (FP) PO SCH (10:58)
[2019-03-15] MEDS: CYCLOBENZAPRINE HCL 10 MG TABLET (FP) PO PRN ×2 (10:58→21:48)
[2019-03-15] MEDS: MAGNESIUM HYDROX 2400MG/30ML ORAL SUSPENSION 30 ML CUP PO PRN (14:15)
[2019-03-15] MEDS: MELATONIN 5 MG TABLETS PO PRN (21:48)
[2019-03-15] MEDS: traZODone HCL 100 MG TABLET (FP) PO SCH (21:48)
[2019-03-15] MEDS: THIAMINE HCL 100 MG TABLET (FP) PO SCH (21:48)
[2019-03-15] MEDS: LATANOPROST 0.005% OPHTH SOLN 2.5ML BOTTLE OU SCH (21:50)
[2019-03-16] MEDS: IBUPROFEN 400 MG TABLET (FP) PO PRN ×2 (11:04→22:11)
[2019-03-16] MEDS: PRENATAL VITAMINS W/ FOLIC ACID TABLET (FP) PO SCH (11:04)
[2019-03-16] MEDS: CYCLOBENZAPRINE HCL 10 MG TABLET (FP) PO PRN (11:05)
[2019-03-16] MEDS: HYDROCHLOROTHIAZIDE 25 MG TABLET (FP) PO SCH (11:05)
[2019-03-16] MEDS: THIAMINE HCL 100 MG TABLET (FP) PO SCH (22:09)
[2019-03-16] MEDS: LATANOPROST 0.005% OPHTH SOLN 2.5ML BOTTLE OU SCH (22:10)
[2019-03-16] MEDS: traZODone HCL 100 MG TABLET (FP) PO SCH (22:10)
[2019-03-17] MEDS: HYDROCHLOROTHIAZIDE 25 MG TABLET (FP) PO SCH (10:46)
[2019-03-17] MEDS: PRENATAL VITAMINS W/ FOLIC ACID TABLET (FP) PO SCH (10:46)
[2019-03-17] MEDS: CYCLOBENZAPRINE HCL 10 MG TABLET (FP) PO PRN ×2 (10:47→21:43)
[2019-03-17] MEDS: IBUPROFEN 400 MG TABLET (FP) PO PRN ×2 (10:47→21:43)
[2019-03-17] MEDS: MELATONIN 5 MG TABLETS PO PRN (21:43)
[2019-03-17] MEDS: THIAMINE HCL 100 MG TABLET (FP) PO SCH (21:43)
[2019-03-17] MEDS: traZODone HCL 100 MG TABLET (FP) PO SCH (21:43)
[2019-03-17] MEDS: LATANOPROST 0.005% OPHTH SOLN 2.5ML BOTTLE OU SCH (21:44)
[2019-03-18] MEDS: PRENATAL VITAMINS W/ FOLIC ACID TABLET (FP) PO SCH (10:35)
[2019-03-18] MEDS: HYDROCHLOROTHIAZIDE 25 MG TABLET (FP) PO SCH (10:35)
[2019-03-18] MEDS: IBUPROFEN 400 MG TABLET (FP) PO PRN ×2 (10:37→21:49)
[2019-03-18] MEDS: CYCLOBENZAPRINE HCL 10 MG TABLET (FP) PO PRN ×2 (10:37→21:49)
[2019-03-18] MEDS: LATANOPROST 0.005% OPHTH SOLN 2.5ML BOTTLE OU SCH (21:46)
[2019-03-18] MEDS: THIAMINE HCL 100 MG TABLET (FP) PO SCH (21:46)
[2019-03-18] MEDS: traZODone HCL 100 MG TABLET (FP) PO SCH (21:46)
[2019-03-19] MEDS: PRENATAL VITAMINS W/ FOLIC ACID TABLET (FP) PO SCH (10:45)
[2019-03-19] MEDS: HYDROCHLOROTHIAZIDE 25 MG TABLET (FP) PO SCH (10:45)
[2019-03-19] MEDS: IBUPROFEN 400 MG TABLET (FP) PO PRN ×2 (10:46→21:42)
[2019-03-19] MEDS: CYCLOBENZAPRINE HCL 10 MG TABLET (FP) PO PRN (10:47)
[2019-03-19] MEDS: THIAMINE HCL 100 MG TABLET (FP) PO SCH (21:41)
[2019-03-19] MEDS: LATANOPROST 0.005% OPHTH SOLN 2.5ML BOTTLE OU SCH (21:41)
[2019-03-19] MEDS: MELATONIN 5 MG TABLETS PO PRN (21:42)
[2019-03-19] MEDS: traZODone HCL 100 MG TABLET (FP) PO SCH (21:43)
[2019-03-19] MEDS: MAGNESIUM HYDROX 2400MG/30ML ORAL SUSPENSION 30 ML CUP PO PRN (22:41)
[2019-03-20] MEDS: HYDROCHLOROTHIAZIDE 25 MG TABLET (FP) PO SCH (11:01)
[2019-03-20] MEDS: PRENATAL VITAMINS W/ FOLIC ACID TABLET (FP) PO SCH (11:01)
[2019-03-20] MEDS: IBUPROFEN 400 MG TABLET (FP) PO PRN ×2 (11:02→21:49)
[2019-03-20] MEDS: CYCLOBENZAPRINE HCL 10 MG TABLET (FP) PO PRN ×2 (11:03→21:49)
--- NOTE | 2019-03-20 11:03 | PN ---
S Progress Note Note: Patient is scheduled for discharge tomorrow. Script for Trazadone 100 mg/hs at [facility] at [address], [place] [address]
[2019-03-20] MEDS: traZODone HCL 100 MG TABLET (FP) PO SCH (21:48)
[2019-03-20] MEDS: THIAMINE HCL 100 MG TABLET (FP) PO SCH (21:48)
[2019-03-20] MEDS: MELATONIN 5 MG TABLETS PO PRN (21:49)
[2019-03-20] MEDS: LATANOPROST 0.005% OPHTH SOLN 2.5ML BOTTLE OU SCH (21:50)
[2019-03-21 07:05] VITALS: BP 110/74; PULSE 80; TEMP 97.2
[2019-03-21] MEDS: HYDROCHLOROTHIAZIDE 25 MG TABLET (FP) PO SCH (09:41)
[2019-03-21] MEDS: CYCLOBENZAPRINE HCL 10 MG TABLET (FP) PO PRN (09:41)
[2019-03-21] MEDS: PRENATAL VITAMINS W/ FOLIC ACID TABLET (FP) PO SCH (09:41)
[2019-03-21] MEDS: IBUPROFEN 400 MG TABLET (FP) PO PRN (09:42)
--- NOTE | 2019-03-21 09:53 | DS ---
[facility] Rehab Discharge Summary - [facility] Rehab Discharge Summary Admission Date: 03/07/19 Discharge Date: 03/21/19 - History Present History: Alcohol dependence Additional Comments: Pt is a 58 y/o male with a hx of ELIDA admitted to rehab and scheduled to discharge t6oday. Pt has been referred back to his program at [facility]. Pt will follow up with his primary care at [place], [place] for medical management. Pertinent Past History: HTN(on med-HCTZ 25 mg po daily0 HLD(no meds due to fatty Liver per pt) Arthritis Glaucoma(on eye drops med) Sleep disorder - Discharge Physical Exam Vital Signs: Vital Signs Temperature 97.2 F L 03/21/19 07:05 Pulse Rate 80 03/21/19 07:05 Respiratory Rate 03/21/19 07:05 Blood Pressure 110/74 03/21/19 07:05 O2 Sat by Pulse Oximetry (%) - Treatment Discharge Condition: Discharge condition good Hospital Course: Rehabilitated safely CD aftercare accepted to [facility] - Medication Discharge Medications: Ambulatory Orders Latanoprost 0.005% Eye Drops [Xalatan 0.005% Eye Drops -] 1 drop OU HS #1 drops 01/02/16 Folic Acid - 1 mg PO DAILY 01/12/17 Hydrochlorothiazide [Hctz -] 25 mg PO DAILY #30 tablet 05/16/18 traZODone HCL [Trazodone HCl] 100 mg PO HS #30 tablet 08/24/18 traZODone HCL [Desyrel -] 100 mg PO HS #30 tablet 03/20/19 - Medication-Assisted Treatment (MAT) Medication-Assisted Treatment (MAT): No - Discharge Instructions Diet, activity, other medical instructions: Diet:LUCY Activity: oob ad matt Other medical instructions:follow up with CD aftercare as recommended and scheduled Follow up with your primary care at [facility] as you scheduled on . - Diagnosis (1) Alcohol dependence Current Visit: Yes Status: Chronic Qualifiers: Substance use status: uncomplicated Qualified Code(s): F10.20 - Alcohol dependence, uncomplicated (2) Arthritis Current Visit: Yes Status: Chronic (3) Glaucoma Current Visit: Yes Status: Chronic Qualifiers: Glaucoma type: unspecified Laterality: bilateral Qualified Code(s): H40.9 - Unspecified glaucoma (4) Hypercholesterolemia Current Visit: Yes Status: Chronic (5) Hypertension Current Visit: Yes Status: Chronic Qualifiers: Hypertension type: essential hypertension Qualified Code(s): I10 - Essential (primary) hypertension - Follow-up Referral Minutes to complete discharge: 20 - AMA Did Patient Leave Against Medical Advice: No Additional Comments: Pt reports he has made appointment with his primary care at [facility] for 03/31/19. Pt reported on admission that he has own meds at home.
== END 2019-03-21 11:05 | disposition home or self-care (01) | DRG 772 ==
LOC: YASAS 10:37 → Y5N 13:01
PROVIDERS: ADMIT Allergy & Immunology; ATTEND Allergy & Immunology
PROC: HZ42ZZZ Group Counseling for Substance Abuse Treatment, Cognitive-Behavioral (ICD-10-PCS; principal; 2019-03-07)
DX: F10.20 Alcohol dependence, uncomplicated (principal); I10 Essential (primary) hypertension; E78.5 Hyperlipidemia, unspecified; H40.9 Unspecified glaucoma; M19.90 Unspecified osteoarthritis, unspecified site; K76.0 Fatty (change of) liver, not elsewhere classified; Z88.8 Allergy status to other drugs, medicaments and biological substances
CPT/HCPCS: 36415; 80053; 81003; 85027; 86593

== ENCOUNTER 2021-03-21 12:58 | Inpatient (IN) | payer OTHER ==
[2021-03-21] MEDS ORDERED: ONDANSETRON *ODT* 4 MG TABLET SL PRN (14:14)
[2021-03-21] MEDS ORDERED: MAGNESIUM HYDROX 2400MG/30ML ORAL SUSPENSION 30 ML CUP PO PRN (14:14)
[2021-03-21] MEDS ORDERED: IBUPROFEN 400 MG TABLET (FP) PO PRN (14:14)
[2021-03-21] MEDS ORDERED: NICOTINE 10 MG CARTRIDGE (INHALER) IH PRN (14:14)
[2021-03-21] MEDS ORDERED: ACETAMINOPHEN 325 MG TABLET (FP) PO PRN ×2 (14:14)
[2021-03-21] MEDS ORDERED: LORazepam 1 MG TABLET PO PRN (14:14)
[2021-03-21] MEDS ORDERED: BISMUTH SUBSALICYLATE 262 MG/15 ML BTL PO PRN (14:14)
[2021-03-21] MEDS ORDERED: MAG HYDROX/AL HYDROX/SIMETH 30 ML UNIT-DOSE CUP PO PRN (14:14)
[2021-03-21] MEDS ORDERED: MENTHOL/PHENOL 1 EACH UD MM PRN (14:14)
[2021-03-21] MEDS ORDERED: MAGNESIUM CITRATE 300 ML BOTTLE PO PRN (14:14)
[2021-03-21 14:45] VITALS: BMI 19.2
[2021-03-21] MEDS: METHOCARBAMOL 500 MG TABLET PO PRN (19:12)
[2021-03-21] MEDS: hydrOXYzine PAMOATE 25 MG CAPSULE (FP) PO SCH ×2 (19:12→22:12)
[2021-03-21] MEDS: LORazepam 2 MG TABLET PO SCH ×2 (19:13→22:12)
[2021-03-21] MEDS: THIAMINE HCL 100 MG TABLET (FP) PO SCH (22:12)
[2021-03-21] MEDS: MELATONIN 5 MG TABLETS PO SCH (22:12)
[2021-03-21] MEDS: LATANOPROST 0.005% OPHTH SOLN 2.5ML BOTTLE OU SCH (22:16)
[2021-03-22] MEDS: hydrOXYzine PAMOATE 25 MG CAPSULE (FP) PO SCH ×5 (05:07→22:14)
[2021-03-22] MEDS: LORazepam 2 MG TABLET PO SCH ×4 (05:09→22:14)
[2021-03-22] MEDS: HYDROCHLOROTHIAZIDE 25 MG TABLET (FP) PO SCH (10:33)
[2021-03-22] MEDS: PRENATAL VITAMINS W/ FOLIC ACID TABLET (FP) PO SCH (10:33)
[2021-03-22 13:50] LABS: HEMATOCRIT 39.3 % (35.4-49); HEMOGLOBIN 13.3 GM/dL (11.7-16.9); MCH 31.1 pg (25.7-33.7); MCHC 33.8 g/dl (32.0-35.9); MEAN CELL VOLUME 92.1 fl (80-96); MEAN PLT VOLUME 8.5 fl (7.5-11.1); PLATELET COUNT 175 10^3/uL (134-434); RBC 4.27 M/mm3 (4.00-5.60); RDW 13.3 % (11.9-15.9); WHITE BLOOD COUNT 7.2 K/mm3 (4.0-10.0)
[2021-03-22] MEDS: FOLIC ACID 1 MG TABLET (FP) PO SCH (14:09)
[2021-03-22 14:17] LABS: CREATININE 0.8 mg/dL (0.55-1.3)
[2021-03-22 14:45] LABS: ALBUMIN 4.2 g/dl (3.4-5.0); BILIRUBIN,TOTAL 2.8 mg/dL (0.2-1); BLOOD UREA NITROGEN 11.1 mg/dL (7-18); CALCIUM 9.8 mg/dL (8.5-10.1); TOT PROT 8.4 g/dl (6.4-8.2)
[2021-03-22] MEDS ORDERED: POTASSIUM CHLORIDE TABS 20 MEQ TABLET.ER (FP) PO ONE (14:46)
[2021-03-22] MEDS: traZODone HCL 50 MG TABLET (FP) PO SCH (22:14)
[2021-03-22] MEDS: LATANOPROST 0.005% OPHTH SOLN 2.5ML BOTTLE OU SCH (22:14)
[2021-03-22] MEDS: THIAMINE HCL 100 MG TABLET (FP) PO SCH (22:14)
[2021-03-22] MEDS: MELATONIN 5 MG TABLETS PO SCH (22:14)
[2021-03-23] MEDS: hydrOXYzine PAMOATE 25 MG CAPSULE (FP) PO SCH ×5 (05:43→22:32)
[2021-03-23] MEDS: LORazepam 1 MG TABLET PO SCH ×4 (05:43→22:32)
[2021-03-23] MEDS: FOLIC ACID 1 MG TABLET (FP) PO SCH (10:35)
[2021-03-23] MEDS: HYDROCHLOROTHIAZIDE 25 MG TABLET (FP) PO SCH (10:35)
[2021-03-23] MEDS: PRENATAL VITAMINS W/ FOLIC ACID TABLET (FP) PO SCH (10:36)
[2021-03-23 12:10] LABS: BLOOD UREA NITROGEN 8.9 mg/dL (7-18); CALCIUM 9.7 mg/dL (8.5-10.1)
[2021-03-23 12:13] LABS: CREATININE 0.7 mg/dL (0.55-1.3)
[2021-03-23] MEDS: LATANOPROST 0.005% OPHTH SOLN 2.5ML BOTTLE OU SCH (22:31)
[2021-03-23] MEDS: MELATONIN 5 MG TABLETS PO SCH (22:32)
[2021-03-23] MEDS: traZODone HCL 50 MG TABLET (FP) PO SCH (22:32)
[2021-03-23] MEDS: THIAMINE HCL 100 MG TABLET (FP) PO SCH (22:32)
[2021-03-24] MEDS ORDERED: LORazepam 0.5 MG TABLET PO PRN
[2021-03-24] MEDS: hydrOXYzine PAMOATE 25 MG CAPSULE (FP) PO SCH ×5 (05:41→22:19)
[2021-03-24] MEDS: LORazepam 0.5 MG TABLET PO SCH ×4 (05:42→22:21)
[2021-03-24] MEDS: HYDROCHLOROTHIAZIDE 25 MG TABLET (FP) PO SCH (10:46)
[2021-03-24] MEDS: FOLIC ACID 1 MG TABLET (FP) PO SCH (11:16)
[2021-03-24] MEDS: PRENATAL VITAMINS W/ FOLIC ACID TABLET (FP) PO SCH (11:16)
[2021-03-24] MEDS: MELATONIN 5 MG TABLETS PO SCH (22:19)
[2021-03-24] MEDS: traZODone HCL 50 MG TABLET (FP) PO SCH (22:19)
[2021-03-24] MEDS: THIAMINE HCL 100 MG TABLET (FP) PO SCH (22:19)
[2021-03-24] MEDS: METHOCARBAMOL 500 MG TABLET PO PRN (22:20)
[2021-03-24] MEDS: LATANOPROST 0.005% OPHTH SOLN 2.5ML BOTTLE OU SCH (22:22)
[2021-03-25] MEDS ORDERED: LORazepam 0.5 MG TABLET PO ONE (05:00)
[2021-03-25] MEDS: hydrOXYzine PAMOATE 25 MG CAPSULE (FP) PO SCH ×2 (05:36→10:13)
[2021-03-25 09:01] VITALS: BP 102/61; PULSE 82; TEMP 98.6
[2021-03-25] MEDS: HYDROCHLOROTHIAZIDE 25 MG TABLET (FP) PO SCH (10:13)
[2021-03-25] MEDS: PRENATAL VITAMINS W/ FOLIC ACID TABLET (FP) PO SCH (10:13)
[2021-03-25] MEDS: FOLIC ACID 1 MG TABLET (FP) PO SCH (10:13)
== END 2021-03-25 10:19 | disposition home or self-care (01) | DRG 775 ==
LOC: YASAS 12:58 → Y6N 16:25
PROVIDERS: ADMIT Allergy & Immunology; ATTEND Allergy & Immunology
PROC: HZ2ZZZZ Detoxification Services for Substance Abuse Treatment (ICD-10-PCS; principal; 2021-03-21)
DX: F10.230 Alcohol dependence with withdrawal, uncomplicated (principal); F10.282 Alcohol dependence with alcohol-induced sleep disorder; E87.6 Hypokalemia; E87.1 Hypo-osmolality and hyponatremia; G47.00 Insomnia, unspecified; I10 Essential (primary) hypertension; H40.9 Unspecified glaucoma; K76.0 Fatty (change of) liver, not elsewhere classified; M19.011 Primary osteoarthritis, right shoulder; M19.012 Primary osteoarthritis, left shoulder; R74.01 Elevation of levels of liver transaminase levels; Z88.8 Allergy status to other drugs, medicaments and biological substances
CPT/HCPCS: 36415; 80048; 80053; 85027; 86780; 93005; 93010; C9803; U0003; U0005

== ENCOUNTER 2023-06-02 11:56 | Inpatient (IN) | payer OTHER ==
[2023-06-02 13:23] VITALS: BMI 20.3
[2023-06-02] MEDS ORDERED: BENZONATATE 200 MG CAPSULE PO PRN (15:04)
[2023-06-02] MEDS ORDERED: NALOXONE HCL (KLOXXADO) 8 MG SPRAY NS PRN (15:04)
[2023-06-02] MEDS ORDERED: NALOXONE HCL 0.4 MG/ML VIAL IM PRN (15:04)
[2023-06-02] MEDS ORDERED: IBUPROFEN 400 MG TABLET (FP) PO PRN (15:04)
[2023-06-02] MEDS ORDERED: IBUPROFEN 600 MG TABLET (FP) PO PRN (15:04)
[2023-06-02] MEDS ORDERED: MAGNESIUM HYDROX 2400MG/30ML ORAL SUSPENSION 30 ML CUP PO PRN (15:04)
[2023-06-02] MEDS ORDERED: MAG HYDROX/AL HYDROX/SIMETH 30 ML UNIT-DOSE CUP PO PRN (15:04)
[2023-06-02] MEDS ORDERED: guaiFENesin 600 MG TABLET.ER (FP) PO PRN (15:04)
[2023-06-02] MEDS ORDERED: POLYETHYLENE GLYCOL (HEALTHYLAX) 3350 17 GM PACKET PO PRN (15:04)
[2023-06-02] MEDS ORDERED: LOPERAMIDE HCL 2 MG CAPSULE PO PRN (15:04)
[2023-06-02 19:04] LABS: EPI CELLS 22 /uL (0-25.1); HYALINE CASTS 4 /uL (0-3.1); PH,URINE 5.5 (5.0-8.0); URINE APPEARANCE CLEAR; URINE BACTERIA 1 /uL (0-1359); URINE BILIRUBIN NEGATIVE (NEGATIVE); URINE COLOR YELLOW; URINE GLUCOSE (UA) 1+ (NEGATIVE); URINE KETONE NEGATIVE (NEGATIVE); URINE LEUK ESTERASE NEGATIVE (NEGATIVE); URINE NITRITE NEGATIVE (NEGATIVE); URINE PROTEIN 2+ (NEGATIVE); URINE RBC 21 /uL (0-23.9); URINE WBC 15 /uL (0-25.8)
[2023-06-02] MEDS: BACITRACIN 0.9 GM PACKET TP ONE (19:49)
[2023-06-02] MEDS ORDERED: BRIMONIDINE TARTRATE 0.2% OPHTHALMIC 5 ML BOTTLE OU SCH (22:00)
[2023-06-02] MEDS: MELATONIN 5 MG TABLETS PO SCH (22:19)
[2023-06-02] MEDS: QUEtiapine FUMARATE 25 MG TABLET PO SCH (22:19)
[2023-06-02] MEDS: THIAMINE 100 MG TABLET PO SCH (22:19)
[2023-06-02] MEDS: LACOSAMIDE 50 MG TABLET PO SCH (22:19)
[2023-06-02] MEDS: BRIMONIDINE TARTRATE 0.2% OPHTHALMIC 5 ML BOTTLE OU SCH (22:20)
[2023-06-02] MEDS: LATANOPROST 0.005% OPHTH SOLN 2.5ML BOTTLE OU SCH (22:20)
[2023-06-03] MEDS: LISINOPRIL 20 MG TABLET PO SCH (10:27)
[2023-06-03] MEDS: HYDROCHLOROTHIAZIDE 25 MG TABLET (FP) PO SCH (10:27)
[2023-06-03] MEDS: ASPIRIN COATED 81 MG TABLET.EC PO SCH (10:27)
[2023-06-03] MEDS: PRENATAL VITAMINS W/ FOLIC ACID TABLET (FP) PO SCH (10:28)
[2023-06-03 12:16] LABS: HEMATOCRIT 35.5 % (35.4-49); HEMOGLOBIN 11.5 GM/dL (11.7-16.9); MCH 27.6 pg (25.7-33.7); MCHC 32.4 g/dl (32.0-35.9); MEAN CELL VOLUME 85.1 fl (80-96); MEAN PLT VOLUME 11.7 fl (7.5-11.1); PLATELET COUNT 273 10^3/uL (134-434); RBC 4.18 M/mm3 (4.00-5.60); RDW 13.8 % (11.9-15.9)
[2023-06-03 12:36] LABS: CHLORIDE 99 mmol/L (98-107); SODIUM 133 mmol/L (136-145)
[2023-06-03 12:52] LABS: ALBUMIN 3.5 g/dl (3.4-5.0); BLOOD UREA NITROGEN 36.4 mg/dL (7-18); CALCIUM 9.6 mg/dL (8.5-10.1); CO2 30 mmol/L (21-32); GLUCOSE,RANDOM 106 mg/dL (74-106)
[2023-06-03 12:54] LABS: CREATININE 1.7 mg/dL (0.55-1.3); SGOT/AST 19 U/L (15-37)
[2023-06-03 12:55] LABS: SGPT/ALT 21 U/L (13-61)
[2023-06-03 12:57] LABS: TOT PROT 7.4 g/dl (6.4-8.2)
[2023-06-03 12:58] LABS: ALK PHOS 81 U/L (45-117)
[2023-06-03 13:03] LABS: BILIRUBIN,TOTAL 0.6 mg/dL (0.2-1)
[2023-06-03 13:14] LABS: ANION GAP 3 mmol/L (4-13)
[2023-06-03 13:53] LABS: SYPHILIS W/ RPR CONF NON-REACTIVE (NONREACTIVE)
[2023-06-03] MEDS: LACOSAMIDE 100 MG TABLET PO SCH (22:52)
[2023-06-09] MEDS: MINERAL OIL/PETROLAT/WATER TOPICAL CREAM 454 GM JAR TP PRN (21:43)
[2023-06-12] MEDS: SELENIUM SULFIDE 2.25% 180 ML SHAMPOO TP SCH (12:46)
[2023-06-13] MEDS ORDERED: ACETAMINOPHEN 325 MG TABLET (FP) PO PRN (11:15)
[2023-06-14 13:03] LABS: POTASSIUM 4.1 mmol/L (3.5-5.1)
[2023-06-14 13:14] LABS: ALBUMIN 3.6 g/dl (3.4-5.0); BLOOD UREA NITROGEN 18.8 mg/dL (7-18)
[2023-06-14 13:15] LABS: CALCIUM 9.4 mg/dL (8.5-10.1)
[2023-06-14 13:17] LABS: PHOSPHOROUS 3.8 mg/dL (2.5-4.9)
[2023-06-14] MEDS: METHYL SALICYLATE/MENTHOL OINT 30 GM TUBE TP SCH (21:47)
[2023-06-14] MEDS: hydrOXYzine PAMOATE 25 MG CAPSULE (FP) PO PRN (21:49)
[2023-06-14] MEDS: LIDOCAINE PATCH REMOVAL MC SCH (21:50)
[2023-06-15] MEDS: LIDOCAINE 4% PATCH TP SCH (09:41)
[2023-06-22] MEDS ORDERED: [UNRECOGNIZED DRUG - OTHER] TP SCH (13:00)
[2023-06-22] MEDS: PATIENT'S OWN MEDICATION (NON-FORMULARY) (Diclofenac Sodium 0.01 MG/MG Gel) TP SCH (17:10)
[2023-06-22] MEDS ORDERED: MINERAL OIL/PETROLAT/WATER TOPICAL CREAM 113 GM JAR TP SCH (22:00)
[2023-06-23 07:15] VITALS: RESP 18
[2023-06-24] MEDS: BENZOCAINE/MENTHOL (CHLORASEPTIC ) LOZENGE MM PRN (13:32)
[2023-06-28] MEDS: SELENIUM SULFIDE 2.25% 180 ML SHAMPOO TP SCH (18:53)
[2023-06-28] MEDS: BACITRACIN 0.9 GM PACKET TP SCH (21:43)
[2023-06-30 07:19] VITALS: BP 149/76; PULSE 78; TEMP 97.5
== END 2023-06-30 10:00 | disposition home or self-care (01) | DRG 772 ==
LOC: YASAS 11:56 → Y3NR 17:11 → Y5N 06-04 12:03
PROVIDERS: ADMIT Allergy & Immunology; ATTEND Psychiatry & Neurology Pain Medicine
PROC: HZ42ZZZ Group Counseling for Substance Abuse Treatment, Cognitive-Behavioral (ICD-10-PCS; principal; 2023-06-02)
DX: F10.20 Alcohol dependence, uncomplicated (principal); F17.210 Nicotine dependence, cigarettes, uncomplicated; F10.282 Alcohol dependence with alcohol-induced sleep disorder; E78.5 Hyperlipidemia, unspecified; I10 Essential (primary) hypertension; G40.909 Epilepsy, unspecified, not intractable, without status epilepticus; M17.12 Unilateral primary osteoarthritis, left knee; M16.11 Unilateral primary osteoarthritis, right hip; B36.0 Pityriasis versicolor; Z87.820 Personal history of traumatic brain injury; Z88.8 Allergy status to other drugs, medicaments and biological substances
CPT/HCPCS: 36415; 73610-TC-LT-FY; 73630-TC-LT; 80053; 80069; 80305; 80307; 81003; 82140; 82565; 85027; 86780; 86803; 93005; 93010; 99283-25

== ENCOUNTER 2023-06-14 13:59 | Emergency (ER) | payer OTHER ==
[2023-06-14 14:08] VITALS: BP 146/78; PULSE 81; RESP 18; TEMP 98.1; BMI 20.3
[2023-06-14] MEDS: IBUPROFEN 400 MG TABLET (FP) PO ONE (14:55)
[2023-06-14] MEDS ORDERED: IBUPROFEN 400 MG TABLET (FP) PO ONE (14:56)
== END 2023-06-14 16:38 | disposition home or self-care (01) ==
LOC: JERFT 13:59 → JER 13:59 → JERFT 16:38
DX: M25.572 Pain in left ankle and joints of left foot (principal); M76.62 Achilles tendinitis, left leg; X50.1XXA Overexertion from prolonged static or awkward postures, initial encounter; Y93.01 Activity, walking, marching and hiking
CPT/HCPCS: 73610-TC-LT-FY; 73630-TC-LT; 99283-25